=== PATIENT | female | born 1985 | race Caucasian/White ===

== ENCOUNTER 2022-06-05 22:08 | Observation (INO) | payer BC, SELFPAY ==
--- NOTE | ~2022-06-05 | US_ITS ---
EXAMINATION: US abdomen limited DATE: 06/06/2022 13:42 INDICATION: Right upper quadrant abdominal pain. Abnormal liver function tests. TECHNIQUE: Multiple grayscale and Doppler ultrasound images of the abdomen were obtained. COMPARISON: MRCP 06/06/2022 FINDINGS: The visualized portions of the head and body of the pancreas are normal. The liver is benjamin l without focal lesion. There are gallstones in the gallbladder, which is normal in size. Gallbladder wall thickening is noted. There is a positive sonographic Decker sign. The common duct is normal and measures 3 mm. IMPRESSION: 1. Cholelithiasis, gallbladder wall thickening, and positive sonographic Decker sign, consistent with acute cholecystitis.. Reviewed, dictated and finalized at location A.
--- NOTE | ~2022-06-05 | CT_ITS ---
EXAMINATION: CT abdomen pelvis w con DATE: 06/05/2022 23:52 INDICATION: Right abdominal pain. Nausea, vomiting, and diarrhea. TECHNIQUE: Computed tomography (CT) of the abdomen and pelvis was performed with 100 mL Omnipaque 350 intravenous contrast. Automated exposure control and iterative reconstruction technique were employe d. The dose-length product was 1045.94 mGy-cm. COMPARISON: None. FINDINGS: The visualized portions of the lung bases demonstrate minimal atelectasis. No pleural effus ion. The heart size is normal. No pericardial effusion. The liver is normal. The gallbladder is diste nded and contains stones or sludge. The spleen, pancreas, adrenal glands, and kidneys are normal. The re are no dilated loops of bowel. The appendix is normal. There are no pathologically enlarged lymph nodes. There is no free intraperitoneal fluid. There is mild thoracolumbar spondylosis. There is mild chronic anterior wedging of multiple thoracic vertebral bodies. IMPRESSION: 1. Gallbladder distention suspicious for acute cholecystitis. Reviewed, dictated and finalized at location A.
--- NOTE | ~2022-06-05 | MR_ITS ---
EXAMINATION: MR MRCP wo/w con/w 3D wo ind DATE: 06/06/2022 12:08 INDICATION: Right upper quadrant abdominal pain. Elevated liver enzymes. TECHNIQUE: Magnetic resonance imaging (MRI) of the abdomen was performed without and with 15 mL Multi jaimee intravenous contrast. Sequences included coronal T2-weighted SS-FSE, coronal T2-weighted FS SS- FSE, coronal T2-weighted FS FIESTA, axial T2-weighted FS FIESTA, axial T2-weighted FIESTA, sagittal T 2-weighted SS-FSE, axial T1-weighted dual-echo FSPGR, axial T2-weighted SS-FSE, axial T1-weighted LAV A, axial T2-weighted STIR FSE. Thick-slab T2-weighted FRFSE-XL images were obtained for magnetic reso nance cholangiopancreatography (MRCP). Rotating maximum intensity projection 3-D reconstructions of t he volumetric data were created by the technologist. Postcontrast sequences included a time course of axial T1-weighted LAVA. COMPARISON: CT dated 05/28/2022 FINDINGS: ABDOMEN MRI: Heart size is normal. No pericardial or pleural effusion. 5 mm T2 hyperintense nonenhancing cyst in t he left hepatic lobe. Liver is otherwise unremarkable with no intrahepatic biliary ductal dilation. T he spleen, pancreas, bilateral adrenal glands and kidneys are normal. Again seen are numerous gallsto mario alberto in the dependent aspect of the gallbladder which measures up to 3.8 cm in maximal diameter which remains within normal limits. No definitive gallbladder wall thickening or pericholecystic inflammato ry stranding to suggest acute cholecystitis. Visualized portion of the bowels are normal. No patholog ically enlarged abdominal lymphadenopathy. Mild midline ventral diastases. ABDOMEN MRCP: The common bile duct measures up to 4-5 mm in maximal diameter which is normal and which tapers lazaro hly at the distal duct with no evident strictures or choledocholithiasis. The intrahepatic biliary tr ee and main pancreatic duct are also normal. IMPRESSION: 1. Cholelithiasis without evident choledocholithiasis or biliary ductal dilation. Reviewed, dictated and finalized at location A. IMPRESSION: 1. Cholelithiasis without evident choledocholithiasis or biliary ductal dilatio n.
[2022-06-05 22:10] VITALS: BP 126/77; PULSE 67; RESP 16; TEMP 36.8; O2SAT 99
[2022-06-05 22:42] LABS: Basophils Percent Auto 0.9 % (0.2-1.2); Eosinophils Absolute Auto 0.1 K/mm3 (0-0.3); Eosinophils Percent Auto 1.2 % (0-4.4); Hematocrit 40.1 % (37.0-47.0); Hemoglobin 13.6 g/dL (12.0-15.0); Immature Granulocyte Absolute 0.01 K/mm3 (0.00-0.031); Immature Granulocyte Percent A 0.2 % (0-0.5); Mean Corpuscular HGB Conc 33.9 g/dl (32-36); Mean Corpuscular Hemoglobin 30.7 pg (26-34); Mean Corpuscular Volume 90.5 fl (80-100); Mean Platelet Volume 10.8 fl (7.4-10.4); Monocytes Absolute Auto 0.4 K/mm3 (0.1-0.6); Monocytes Percent Auto 8.3 % (2.6-8.5); Neutrophils Absolute Auto 2.4 K/mm3 (1.3-6.7); Neutrophils Percent Auto 56.4 % (45.5-73.1); Platelet Count Result 263 k/mm3 (150-375); Red Blood Count 4.43 M/mm3 (4.2-5.4); Red Cell Distribution Width 12.2 % (11.5-14.5); White Blood Count 4.2 K/mm3 (4.5-10.0)
[2022-06-05 22:52] LABS: Albumin Level 4.7 g/dL (3.5-5.1); Alkaline Phosphatase 148 U/L (38-126); Anion Gap 11 mmol/L (8-16); Aspartate Amino Transferase 582 U/L (14-36); Bilirubin,Total 4.4 mg/dL (0.2-1.3); Blood Urea Nitrogen 7 mg/dL (7-17); Calcium 9.4 mg/dL (8.4-10.2); Carbon Dioxide 28 mmol/L (22-30); Chloride 97 mmol/L (98-107); Estimated CRCL calculation 99 ml/min; Estimated Glomerular Filt Rate > 60; Glucose 103 mg/dL (65-110); Lipase 75 U/L (23-300); Potassium 3.9 mmol/L (3.4-5.0); Sodium 136 mmol/L (137-145)
[2022-06-05 22:56] LABS: Appearance Urine Cloudy (Clear); Bilirubin Urine 3+ (Negative); Blood Urine 2+ (Negative); Color Urine Amber (Yellow); Glucose Urine UA Negative (Negative); Ketones Urine Negative (Negative); Leukocyte Esterase Ur 1+ LEU/UL (Negative); Nitrate Urine Negative (Negative); Protein Urine Negative (Negative); Urobilinogen Urine 0.2 mg/dL (<2.0); pH Urine 7.5 (5.0-9.0)
--- NOTE | 2022-06-05 22:58 | ED.ABDPAIN ---
HPI - Abdominal Pain General Chief Complaint: Abdominal Pain Stated Complaint: abdominal pain Time Seen by Provider: 06/05/22 22:51 Source: patient Mode of arrival: ambulatory Limitations: no limitations History of Present Illness HPI narrative: This is a 37-year-old female that presents to the emergency department for right-sided abdominal pain. Reports the pain radiates into her back. Present over the last couple of days. Associated with nausea and vomiting. Denies fevers, dysuria, hematuria. Related Data Home Medications Medication Instructions Recorded Confirmed cholecalciferol (vitamin D3) 50 50 mcg PO DAILY 11/13/20 11/13/20 mcg (2,000 unit) capsule cyanocobalamin (vitamin B-12) 1,000 mcg PO DAILY 11/13/20 11/13/20 1,000 mcg capsule ferrous sulfate 325 mg (65 mg 325 mg PO DAILY 11/13/20 11/13/20 iron) tablet (Feosol) lactobacillus combination no.9 4 PO 11/13/20 11/13/20 billion cell capsule (Adult 50 Plus Probiotic) levothyroxine 75 mcg tablet 75 mcg PO DAILY 11/13/20 11/13/20 metformin 500 mg tablet 500 mg PO DAILY 11/13/20 11/13/20 Allergies Allergy/AdvReac Type Severity Reaction Status Date / Time No Known Allergies Allergy Unverified 06/05/22 22:08 Review of Systems Review of Systems: CONSTITUTIONAL: Denies fever GASTROINTESTINAL: Reports abdominal pain, nausea, vomiting, and diarrhea. GENITOURINARY: Denies dysuria or hematuria. All systems reviewed & are unremarkable except as noted in HPI and below PMFSH Past Medical History Medical History (Updated 11/13/20 @ 10:38 by Simran Lizarraga NP) Anemia Depression Ita's disease History of PCOS Surgical History Surgical History (Updated 11/13/20 @ 07:29 by Anel Tarango CMA) H/O section X2 Family History Family History (Updated 11/13/20 @ 07:30 by Anel Tarango CMA) Grandparent Cerebrovascular accident Mother Hypothyroidism Social History Social History Smoking status: Never smoker Second hand tobacco smoke exposure: No Alcohol intake: current Exam Narrative: GENERAL: Well-appearing, well-nourished, and in no acute distress. HEAD: Normocephalic, atraumatic. EYES: EOMI. CHEST: Clear to auscultation. No respiratory distress. No wheezes rales or rhonchi HEART: Regular rate and rhythm. No murmur heard. Normal peripheral pulses. ABDOMEN: Soft, nondistended, normal active bowel sounds. Tender to palpation in the right upper quadrant, without guarding EXTREMITIES: Normal range of motion. No edema. SKIN: Warm, dry, no rash. NEURO: No focal deficits. Alert and oriented x3. PSYCH: Normal mood and affect Course Consultations Consultation #1: Spoke with Dr. Gomez about patient and work-up who will consult Date: 06/06/22 Consultation #2: Spoke with Dr. Coats about patient work-up who will consult Date: 06/06/22 Consultation #3: Spoke with Dr. Silva about patient and work-up who accepts admission Date: 06/06/22 Vital Signs Vital signs: Vital Signs Temperature 98.3 F 06/05/22 22:10 Pulse Rate 67 06/05/22 22:10 Respiratory Rate 16 06/05/22 22:10 Blood Pressure 126/77 06/05/22 22:10 Pulse Oximetry 99 06/05/22 22:10 Oxygen Delivery Room Air 06/05/22 22:10 Temperature 98.3 F 06/05/22 22:10 Pulse Rate 67 06/05/22 22:10 Respiratory Rate 16 06/05/22 22:10 Blood Pressure 126/77 06/05/22 22:10 Pulse Oximetry 99 06/05/22 22:10 Oxygen Delivery Room Air 06/05/22 22:10 MDM - Abdominal Pain MDM Narrative Medical decision making narrative: Patient presents emergency department for right upper quadrant pain ongoing over the last couple of days. Associated with nausea and vomiting. She is afebrile and nontoxic-appearing. CBC is without leukocytosis. Metabolic panel with transaminitis and hyperbilirubinemia. UA with possible evidence of infection. Patient started on IV antibiotics. Bedside test is negative. CT s
[2022-06-05 22:59] LABS: Alanine Aminotransferase 846 U/L (6-35)
[2022-06-05 23:00] LABS: Bacteria Urine Trace /hpf; Mucus Urine Rare /lpf; RBC Urine 0-2 /hpf (0-2); Squamous Epithelial Cell Urine Few /hpf (Few); WBC Urine 21-30 /hpf
[2022-06-05 23:01] LABS: Add Urine Microscopic? YES
[2022-06-05 23:17] LABS: Acetaminophen < 10 ug/mL (10-30)
[2022-06-05] MEDS: ONDANSETRON INJ 4 MG/2 ML VIAL IV PUSH (23:27)
[2022-06-05] MEDS: SODIUM CHLORIDE 0.9% IV 1,000 ML 999 ML IV CONT (23:27)
[2022-06-05] MEDS: MORPHINE SULFATE (*CRX) 4 MG/ML INJ IV PUSH (23:27)
[2022-06-05 23:31] VITALS: BP 111/73; O2SAT 100
[2022-06-05 23:48] LABS: Hepatitis B Surface Antigen Negative (Negative)
[2022-06-05 23:54] LABS: HAV RESULT Negative (Negative); Hepatitis B Core IgM Result Negative (Negative)
[2022-06-06] VITALS (7 sets, daily range): BP systolic 107–134; BP diastolic 52–82; PULSE 64–66; RESP 16–20; TEMP 36.3–37.3; O2SAT 98–100; BMI 34.2
[2022-06-06 00:06] LABS: Hepatitis C Virus Antibody Negative (Negative)
--- NOTE | 2022-06-06 01:19 | PM.IMHP ---
H&P: HPI History of Present Illness Date/Time: 06/06/22 01:19 Chief Complaint: nausea and vomiting Narrative: this is a 37-year-old female with past medical history significant for Ita's thyroiditis, patient presents to the emergency room due to nausea and vomiting since Monday, and right upper quadrant pain, patient denies any fevers, rigors, chills, cough, sputum production, diarrhea, weight loss, change in stool character. preliminary workup was significant for comprehensive metabolic profile with total bili of 4.4 AST 580 ALT [address] of abdomen and pelvis showed numerous gallstones. Patient is been admitted for further evaluation management and treatment. Review of Systems Review of Systems: Right upper quadrant pain, nausea, vomiting. Constitutional: Constitutional: Denies chills, Denies fever(s) and Denies malaise Eyes: Eyes: Denies change in vision ENT: Denies dysphagia and Denies odynophagia Cardiovascular: Cardiovascular: Denies chest pain, Denies syncope, Denies irregular heart rhythm, Denies lightheadedness and Denies palpitations Respiratory: Respiratory: Denies chest congestion, Denies cough, Denies excessive phlegm production, Denies pain on inspiration, Denies dyspnea and Denies dyspnea on exertion Gastrointestinal: Gastrointestinal: Reports abdominal pain, Denies dyspepsia, Denies heartburn, Reports nausea and Reports vomiting Genitourinary: Genitourinary: Denies dysuria Musculoskeletal: Musculoskeletal: Denies back pain, Denies joint swelling, Denies muscle weakness and Reports neck pain Integumentary/Breasts: Skin/Breast: Denies rash Neurologic: Denies vertigo, Denies dizziness, Denies focal weakness and Denies Sensory deficit (Neuro) Psychiatric: Psychiatric: Reports no additional psychiatric complaints and Reports as per HPI Endocrine: Endocrine: Denies cold intolerance, Denies flushing, Denies heat intolerance, Denies polyphagia, Denies polydipsia and Denies palpitations Hematologic/Lymphatic: Hematologic/Lymphatic: Reports no additional hematologic/lymphatic complaints and Reports as per HPI Allergic/Immunologic: Allergic/Immunologic: Reports no additional allergic/immunologic complaints and Reports as per HPI PMFSH Past Medical History Medical History (Updated 06/06/22 @ 04:18 by Jay Silva MD) Anemia Depression Ita's disease History of PCOS Surgical History Surgical History (Updated 11/13/20 @ 07:29 by Anel Tarango CMA) H/O section X2 Family History Family History Grandparent Cerebrovascular accident Mother Hypothyroidism Social History Social History Smoking status: Never smoker Second hand tobacco smoke exposure: No Alcohol intake: current Drinks per week: 3 Substance use: never Spiritual care concerns: No Meds Home Medications and Allergies Home Medications Medication Instructions Recorded Confirmed Type cholecalciferol (vitamin D3) 50 50 mcg PO DAILY 11/13/20 06/06/22 History mcg (2,000 unit) capsule cyanocobalamin (vitamin B-12) 1,000 mcg PO DAILY 11/13/20 06/06/22 History 1,000 mcg capsule ferrous sulfate 325 mg (65 mg 325 mg PO DAILY 11/13/20 06/06/22 History iron) tablet (Feosol) lactobacillus combination no.9 4 See Rx Instructions .Route .COMPLEX 11/13/20 06/06/22 History billion cell capsule (Adult 50 Plus Probiotic) desogestrel-e.estradiol 0.15 1 tablet PO HS 06/06/22 06/06/22 History mg-0.02 mg(21)/e.estrad 0.01 mg(5) tablet (Volnea (28)) levothyroxine 88 mcg tablet 88 mcg PO DAILY 06/06/22 06/06/22 History (Synthroid) spironolactone 50 mg tablet 50 mg PO HS 06/06/22 06/06/22 History Allergies Allergy/AdvReac Type Severity Reaction Status Date / Time No Known Allergies Allergy Unverified 06/05/22 22:08 Vital Signs Vital Signs - 24 hr 06/05/22 22:10 Temperature 98.3
--- NOTE | 2022-06-06 02:28 | ADMGEN ---
This patient, Little Soto, was admitted to Medical Room 243-. Patient/family oriented to hospital policies and general routines including ID bracelet, bed and alarms, visiting hours, pain management, procedures, bathroom and other care routines, personal items, smoking policy, room service/diet, and visiting hours. Information on how to activate the Rapid Response Team has been discussed. Patient/Family are encouraged to report perceived risks to care and to ask questions if they do not understand what they are told or what they should do.
[2022-06-06 06:25] LABS: Basophils Percent Auto 0.8 % (0.2-1.2); Eosinophils Percent Auto 0.4 % (0-4.4); Hematocrit 36.9 % (37.0-47.0); Hemoglobin 12.3 g/dL (12.0-15.0); Immature Granulocyte Absolute 0.01 K/mm3 (0.00-0.031); Immature Granulocyte Percent A 0.2 % (0-0.5); Lymphocytes Absolute Auto 0.96 K/mm3 (0.9-3.2); Lymphocytes Percent Auto 19.2 % (18.3-44.2); Mean Corpuscular HGB Conc 33.3 g/dl (32-36); Mean Corpuscular Hemoglobin 30.9 pg (26-34); Mean Corpuscular Volume 92.7 fl (80-100); Mean Platelet Volume 10.8 fl (7.4-10.4); Monocytes Absolute Auto 0.4 K/mm3 (0.1-0.6); Neutrophils Absolute Auto 3.6 K/mm3 (1.3-6.7); Neutrophils Percent Auto 72.4 % (45.5-73.1); Platelet Count Result 225 k/mm3 (150-375); Red Blood Count 3.98 M/mm3 (4.2-5.4); Red Cell Distribution Width 12.4 % (11.5-14.5)
[2022-06-06 06:37] LABS: Alanine Aminotransferase 685 U/L (6-35); Albumin Level 3.9 g/dL (3.5-5.1); Alkaline Phosphatase 127 U/L (38-126); Anion Gap 2 mmol/L (8-16); Aspartate Amino Transferase 355 U/L (14-36); Bilirubin Direct 1.4 mg/dL (0-0.3); Bilirubin,Total 3.3 mg/dL (0.2-1.3); Blood Urea Nitrogen 5 mg/dL (7-17); Calcium 8.2 mg/dL (8.4-10.2); Carbon Dioxide 27 mmol/L (22-30); Chloride 104 mmol/L (98-107); Estimated CRCL calculation 95 ml/min; Estimated Glomerular Filt Rate > 60; Glucose 108 mg/dL (65-110); Lipase 32 U/L (23-300); Magnesium 1.9 mg/dL (1.6-2.3); Potassium 4.3 mmol/L (3.4-5.0); Sodium 133 mmol/L (137-145)
[2022-06-06] MEDS: SODIUM CHLORIDE 0.9% IV 1,000 ML 100 ML IV CONT ×2 (07:56→22:58)
--- NOTE | 2022-06-06 10:35 | PM.CNGS ---
Assessment and Plan Assessment and plan (1) Cholelithiasis: Code(s): K80.20 - Calculus of gallbladder without cholecystitis without obstruction Status: Acute Assessment and Plan: CT reviewed and discussed with the patient in detail. There is evidence of small gallstones or sludge and gallbladder distension. She continues to have right upper quadrant abdominal pain and is tender on exam. LFTs are elevated. Concerning for common bile duct stone. Will order a right upper quadrant abdominal ultrasound this morning. GI has been consulted. We will await ultrasound and possibly MRCP for further plan. Discussed with the patient that she may eventually need a cholecystectomy if she does have choledocholithiasis or evidence of acute cholecystitis on ultrasound with persistent abdominal pain. Thank you for allowing us to see the patient in consultation and we will continue to follow along with you. (2) Right upper quadrant pain: Code(s): R10.11 - Right upper quadrant pain Status: Acute (3) Abnormal LFTs: Code(s): R79.89 - Other specified abnormal findings of blood chemistry Status: Acute Assessment and Plan: LFTs elevated on admission with total bilirubin 4.4. LFTs down slightly today with Tbili 3.3, direct bilirubin 1.4. Hepatitis panel negative. GI consulted. May need MRCP to further evaluate for CBD stone. Trend labs. 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 Gomez. History of Present Illness Consult details Consult date: 06/06/22 Reason for consult: other (Cholelithiasis, elevated LFTs, biliary colic) Requesting physician: Simran East PA-C Narrative: This is a 37-year-old obese woman with a history of PCOS and Ita's disease, who presented to the ER last night for right-sided abdominal pain x3 days. She reports having a similar episode of abdominal pain, vomiting, and diarrhea last August. Her symptoms were more mild and spontaneously resolved at home. Therefore, she did not seek any medical attention at that time. This episode started Monday night, 3 nights ago. She ate a Qdoba rice, beans, and shrimp bowl for dinner. She went to bed and woke up through the night with right-sided abdominal pain that radiated to her back. She describes the pain as sharp. She had associated nausea and diarrhea, but no vomiting that night. The following day her pain continued and she felt unwell while at work. She ended up leaving work early and vomited once home. She had associated chills. She only ate applesauce and liquids throughout the day. This did not seem to aggravate her symptoms. Her pain continued into Monday, but was more mild. She decided to eat dinner and had vegetarian lasagna. Shortly after eating, her abdominal pain became more severe and she decided to come into the ER for evaluation. She felt nauseated on the way to the ER, but no further episodes of vomiting. With further questioning, she also endorses dark urine starting Monday morning. No light-colored stools and no jaundice noted at home. CT scan of the abdomen and pelvis was initially read by the virtual radiologist, which showed the impression gallbladder distention with probable small gallstones. Her labs showed a white blood cell count 4,200, total bilirubin 4.4, AST 582, ALT 846, alk-phos 142. Lipase normal. Urinalysis with + bilirubin, + blood, + leukocytes, and 21-30 wbc's. She was admitted to the hospitalist service and given 1 dose of IV ceftriaxone. Our service has been consulted for the biliary colic with cholelithiasis and elevated LFTs. GI has also been consulted. The patient is now seen on medical floor. The IV morphine given to her in the ER helped her pain and she required a dose of IV Tylenol this morning when her pain started to return. She still reports worse pain is in
--- NOTE | 2022-06-06 11:45 | PM.IMPN ---
Progress Note: A&P Assessment and Plan (1) Cholelithiasis: Code(s): K80.20 - Calculus of gallbladder without cholecystitis without obstruction Status: Acute Assessment and Plan: CT showed distended gallbladder with probable stones, no thickening RUQ ultrasound ordered MRCP Cholelithiasis without evident choledocholithiasis or biliary ductal dilation. NPO Surgical intervention scheduled for today IV fluids for hydration surgery consult thank you for your help GI consult thank you for your help Pain medications Morphine 4mg IV Zofran 4mg IV supportive care (2) Right upper quadrant pain: Code(s): R10.11 - Right upper quadrant pain Status: Acute Assessment and Plan: likely secondary to 1. 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 She stated that she got some IV tylenol which has seemed to help. She currently denies any chest pain, shortness of breath, nausea, vomiting, diarrhea, constipation. She is currently waiting to go for the RUQ ultrasound. Talked with the patient about the proper steps in regaurds to her symptoms. 06/06/22? 01:19 ?this is a 37-year-old female with past medical history significant for Ita's thyroiditis, patient presents to the emergency room due to nausea and vomiting since Monday, and right upper quadrant pain, patient denies any fevers, rigors, chills, cough, sputum production, diarrhea, weight loss, change? in stool ? character. preliminary workup was significant for comprehensive metabolic profile with total bili of 4.4 AST 580? ALT? [address] of abdomen and pelvis showed numerous gallstones.? Patient is been admitted for further evaluation management and treatment. Review of Systems Review of Systems: All systems reviewed & are unremarkable except as noted in HPI and below Exam Const: General: comfortable, no acute distress, well developed, alert and awake Nutritional Appearance: overweight Orientation/consciousness: patient oriented x3 HENMT: Head: normal to inspection, normocephalic and atraumatic Ears: hearing grossly normal bilaterally Face and sinus: normal facial exam Eyes: General: appearance normal, both eyes and all related structures Pupils: Equal, round and reactive pupils present EOM: EOMs intact bilaterally Neck: Neck: full ROM, no lymphadenopathy and no JVD Thyroid: thyroid normal Lymphatic: no lymphadenopathy noted Resp: Effort & Inspection: normal respiratory effort and able to speak in complete sentences Auscultation: clear to auscultation bilaterally Cardio: Jugular venous distension: no JVD Rate: regular rate Rhythm: regular rhythm Heart sounds: S1 normal heart sound present and S2 normal heart sound present GI: GI Palp: Yes Soft to palpation, Yes Tenderness to palpation present (GI) and Yes Guarding due to palpation present (GI) Auscultation: Hypoactive bowel sounds present Rectal Exam: deferred : General: Yes deferred Skin: General skin exam: normal color Lesions: lesion noted Rashes: no rashes Wounds: no wounds Neuro: General: patient oriented x3, CN's II-XI intact bilaterally and Unable to assess gait Cranial nerves: Yes CN's II-XII intact bilaterally and Yes Equal, round and reactive pupils present Cognition (Neuro): normal cognitio
--- NOTE | 2022-06-06 14:13 | WPDGICN ---
Assessment and Plan Assessment and plan (1) Right upper quadrant pain: Code(s): R10.11 - Right upper quadrant pain Status: Acute Assessment and Plan: mrcp reviewed and normal bile duct size and no choledocholithiasis patient will need lap cholecystectomy given clinical presentation, surgery is on board no need of ERCP (2) Abnormal LFTs: Code(s): R79.89 - Other specified abnormal findings of blood chemistry Status: Acute Assessment and Plan: GB related monitor and trend (3) Cholelithiasis: Code(s): K80.20 - Calculus of gallbladder without cholecystitis without obstruction Status: Acute Assessment and Plan: cause of symptoms (4) Nausea and vomiting in adult: Code(s): R11.2 - Nausea with vomiting, unspecified Status: Acute Assessment and Plan: still nauseous but no more vomiting GI Consult Note Consult date/time: 06/06/22 14:13 Reason for consult: cholecystitis, elevated liver enzymes HPI: Little Soto is a 37 year old female history of PCOS and Ita's disease here with new onset of severe pain in ruq with radiation to her back, this was associated to nausea and vomiting, started after had Qdoba rice, beans, and shrimp bowl for dinner.?She had similar episode on August but went away and did not have to see a doctor, this time pain persisted. CT scan of the abdomen and pelvis reviewed, showed gallbladder distention with probable small gallstones.? Her labs showed a white blood cell count 4,200, total bilirubin 4.4, AST 582, ALT 846, alk-phos 142.? Lipase normal.?MRCP showed Cholelithiasis without evident choledocholithiasis or biliary ductal dilation. Review of Systems Review of Systems: All systems reviewed & are unremarkable except as noted in HPI and below Constitutional: Constitutional: Reports as per HPI, Reports no additional constitutional complaints, Reports chills, Denies fatigue, Denies fever(s), Denies headache(s) and Denies poor appetite Eyes: Eyes: Reports no additional eye complaints and Denies change in vision ENT: Reports system reviewed and no additional complaints, except as documented and Reports Normal hearing present Cardiovascular: Cardiovascular: Reports no additional cardiovascular complaints, Denies chest pain and Denies leg edema Respiratory: Respiratory: Reports no additional respiratory complaints, Denies cough and Denies dyspnea Gastrointestinal: Gastrointestinal: Reports as per HPI, Reports no additional gastrointestinal complaints, Reports abdominal pain, Denies melena, Denies hematochezia, Denies change in bowel habits, Reports diarrhea (Monday only), Reports nausea and Reports vomiting Genitourinary: Genitourinary: Reports no additional female genitourinary complaints, Reports abnormal menses (r/t control), Denies hematuria, Denies dysuria and Reports other (dark orange, brown urine x 2 days) Musculoskeletal: Musculoskeletal: Reports no additional musculoskeletal complaints Integumentary/Breasts: Skin/Breast: Reports system reviewed and no additional complaints, except as docu and Denies jaundice Neurologic: Reports system reviewed and no additional complaints, except as documented, Denies dizziness, Denies focal weakness, Denies numbness and Denies tingling PMFSH Past Medical History Medical History (Updated 06/06/22 @ 14:19 by Gagandeep Cabral MD) Anemia Depression Ita's disease History of PCOS Nausea and vomiting in adult Surgical History Surgical History H/O section X2 Family History Family History Grandparent Cerebrovascular accident Mother Hypothyroidism Social History Social History Smoking status: Never smoker Second hand tobacco smoke exposure: No Alcohol intake: cu
[2022-06-07] VITALS (12 sets, daily range): BP systolic 110–145; BP diastolic 61–84; PULSE 45–84; RESP 12–20; TEMP 35.9–37.1; O2SAT 98–100
[2022-06-07 05:02] LABS: Basophils Percent Auto 0.9 % (0.2-1.2); Eosinophils Absolute Auto 0.1 K/mm3 (0-0.3); Eosinophils Percent Auto 1.5 % (0-4.4); Immature Granulocyte Absolute 0.01 K/mm3 (0.00-0.031); Immature Granulocyte Percent A 0.3 % (0-0.5); Lymphocytes Absolute Auto 1.44 K/mm3 (0.9-3.2); Lymphocytes Percent Auto 43.6 % (18.3-44.2); Mean Corpuscular HGB Conc 33.3 g/dl (32-36); Mean Corpuscular Hemoglobin 30.8 pg (26-34); Mean Corpuscular Volume 92.3 fl (80-100); Mean Platelet Volume 11.6 fl (7.4-10.4); Monocytes Absolute Auto 0.3 K/mm3 (0.1-0.6); Monocytes Percent Auto 9.4 % (2.6-8.5); Neutrophils Absolute Auto 1.5 K/mm3 (1.3-6.7); Neutrophils Percent Auto 44.3 % (45.5-73.1); Platelet Count Result 210 k/mm3 (150-375); Red Cell Distribution Width 12.2 % (11.5-14.5); White Blood Count 3.3 K/mm3 (4.5-10.0)
[2022-06-07 05:30] LABS: Alanine Aminotransferase 489 U/L (6-35); Albumin Level 3.6 g/dL (3.5-5.1); Alkaline Phosphatase 112 U/L (38-126); Amylase 30 U/L (30-110); Anion Gap 1 mmol/L (8-16); Aspartate Amino Transferase 177 U/L (14-36); Blood Urea Nitrogen 7 mg/dL (7-17); Calcium 8.2 mg/dL (8.4-10.2); Carbon Dioxide 27 mmol/L (22-30); Chloride 103 mmol/L (98-107); Estimated CRCL calculation 95 ml/min; Estimated Glomerular Filt Rate > 60; Glucose 83 mg/dL (65-110); Lipase 26 U/L (23-300); Potassium 3.7 mmol/L (3.4-5.0); Sodium 131 mmol/L (137-145)
--- NOTE | 2022-06-07 08:50 | WPDHPUPDATE1 ---
History and Physical Update Update Date/Time: 06/07/22 08:50 History and Physical has been reviewed, including an updated exam of the patient. There are changes in the patient's condition. Patient's total bilirubin and direct bilirubin have come down to normal over the last 48 hours. Her pain has somewhat resolved although she still has some deep ache radiating to her right mid back. patient continues on ceftriaxone for possible UTI and for the possibility that this is acute rather than chronic cholecystitis with cholelithiasis. Risks, benefits, and alternatives of a laparoscopic cholecystectomy, possible intraoperative cholangiogram, possible open cholecystectomy have been discussed and questions answered. Patient agrees to proceed with procedure.
[2022-06-07] MEDS: CHLORHEXIDINE GLUCONATE 4% SOL 120 ML BTL 1 APPLIC TOPICAL (08:54)
--- NOTE | 2022-06-07 10:00 | PM.IMPN ---
Progress Note: A&P Assessment and Plan (1) Cholelithiasis: Code(s): K80.20 - Calculus of gallbladder without cholecystitis without obstruction Status: Acute Assessment and Plan: CT showed distended gallbladder with probable stones, no thickening RUQ ultrasound Cholelithiasis, gallbladder wall thickening, and positive sonographic Decker sign, consistent with acute cholecystitis.. MRCP Cholelithiasis without evident choledocholithiasis or biliary ductal dilation. NPO Surgical intervention scheduled for today IV fluids for hydration surgery consult thank you for your help GI consult thank you for your help Pain medications Morphine 4mg IV Zofran 4mg IV supportive care (2) Right upper quadrant pain: Code(s): R10.11 - Right upper quadrant pain Status: Acute Assessment and Plan: likely secondary to 1. 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 She denies any chest pain, shortness of breath, nausea, vomiting, diarrhea, constipation, weakness or fatigue. She did state that her pain is been okay. She is looking forward to her surgery today. She currently is comfortable. 06/06/22 1145 Patient is doing ok. She stated that she got some IV tylenol which has seemed to help. She currently denies any chest pain, shortness of breath, nausea, vomiting, diarrhea, constipation. She is currently waiting to go for the RUQ ultrasound. Talked with the patient about the proper steps in regaurds to her symptoms. 06/06/22? 01:19 ?this is a 37-year-old female with past medical history significant for Ita's thyroiditis, patient presents to the emergency room due to nausea and vomiting since Monday, and right upper quadrant pain, patient denies any fevers, rigors, chills, cough, sputum production, diarrhea, weight loss, change? in stool ? character. preliminary workup was significant for comprehensive metabolic profile with total bili of 4.4 AST 580? ALT? [address] of abdomen and pelvis showed numerous gallstones.? Patient is been admitted for further evaluation management and treatment. Review of Systems Review of Systems: All systems reviewed & are unremarkable except as noted in HPI and below Exam Const: General: comfortable, no acute distress, well developed, alert and awake Nutritional Appearance: overweight Orientation/consciousness: patient oriented x3 HENMT: Head: normal to inspection, normocephalic and atraumatic Ears: hearing grossly normal bilaterally Face and sinus: normal facial exam Eyes: General: appearance normal, both eyes and all related structures Pupils: Equal, round and reactive pupils present EOM: EOMs intact bilaterally Neck: Neck: full ROM, no lymphadenopathy and no JVD Thyroid: thyroid normal Lymphatic: no lymphadenopathy noted Resp: Effort & Inspection: normal respiratory effort and able to speak in complete sentences Auscultation: clear to auscultation bilaterally Cardio: Jugular venous distension: no JVD Rate: regular rate Rhythm: regular rhythm Heart sounds: S1 normal heart sound present and S2 normal heart sound present GI: Auscultation: Hypoactive bowel sounds present Rectal Exam: deferred
[2022-06-07] MEDS: SODIUM CHLORIDE 0.9% IV 1,000 ML 100 ML IV CONT (10:09)
--- NOTE | 2022-06-07 10:38 | WPDGIPROGNO ---
Progress Note: A&P Assessment and Plan (1) Cholecystitis: Code(s): K81.9 - Cholecystitis, unspecified Status: Acute Assessment and Plan: lap robinson today doing better and normalization of bilirubin will follow [place], call if questions (2) Abnormal LFTs: Code(s): R79.89 - Other specified abnormal findings of blood chemistry Status: Acute Assessment and Plan: no need of ercp MRCP reviewed and most likely passed stone (3) Cholelithiasis: Code(s): K80.20 - Calculus of gallbladder without cholecystitis without obstruction Status: Acute Assessment and Plan: lap robinson (4) Right upper quadrant pain: Code(s): R10.11 - Right upper quadrant pain Status: Acute (5) Nausea and vomiting in adult: Code(s): R11.2 - Nausea with vomiting, unspecified Status: Acute Assessment and Plan: resolved Subjective Date/time seen: 06/07/22 10:38 Interval history: she is doing much better, today lap robinson Review of Systems Review of Systems: All systems reviewed & are unremarkable except as noted in HPI and below Exam Const: General: comfortable and no acute distress HENMT: General nose exam: Normal nares present Eyes: General: appearance normal, both eyes and all related structures Neck: Neck: no JVD Resp: Auscultation: clear to auscultation bilaterally Cardio: Rate: regular rate Rhythm: regular rhythm GI: Inspection: non-distended GI Palp: Yes Soft to palpation Skin: General skin exam: normal color Neuro: General: gait normal Speech: normal speech Extrem: General: normal to inspection Psych: Mental Status: mental status grossly normal Objective Data Vital Signs Vital Signs: Vital Signs - 24 hr 06/06/22 14:00 06/06/22 22:13 06/06/22 21:50 Temperature 97.9 F 97.3 F L Pulse Rate 65 64 Respiratory Rate 16 20 Blood Pressure 118/65 134/69 Pulse Oximetry 99 99 Oxygen Delivery Room Air 06/07/22 06:56 Temperature 97.7 F Pulse Rate 64 Respiratory Rate 20 Blood Pressure 110/65 Pulse Oximetry 98 Oxygen Delivery Intake/Output Intake/Output: Intake & Output 06/04/22 06/05/22 06/06/22 06/07/22 23:59 23:59 23:59 23:59 Intake Total 2830 1000 Output Total 1550 600 Balance 1280 400 Meds/Results Medications: Active Medications Generic Name Dose Route Start Last Admin Trade Name Freq PRN Reason Stop Dose Admin Sodium Chloride 1,000 mls @ 100 mls/hr 06/06/22 07:30 06/07/22 10:09 Normal Saline Iv IV CONT 100 mls/hr .Q10H CHANDLER Administration Ceftriaxone Sodium/Dextrose 1 gm in 50 mls @ 100 mls/hr 06/06/22 20:00 06/06/22 21:30 Rocephin 1 Gm/D5w 50 Ml IVPB Infused Q24H CHANDLER Infusion Morphine Sulfate 4 mg 06/06/22 01:33 Morphine Sulfate (*Crx) 4 Mg/Ml Inj IV PUSH Q4H PRN Pain Rated 7-10 Ondansetron HCl 4 mg 06/06/22 01:33 Ondansetron Inj 4 Mg/2 Ml Vial IV PUSH Q4H PRN Nausea Radiology Results: ITS Impressions Abdomen/Pelvis CT 06/06/22 08:51 IMPRESSION: 1. Gallbladder distention suspicious for acute cholecystitis. MRCP 06/06/22 12:19 IMPRESSION: 1. Cholelithiasis without evident choledocholithiasis or biliary ductal dilation. Abdomen Ultrasound 06/06/22 13:51 IMPRESSION: 1. Cholelithiasis, gallbladder wall thickening, and positive sonographic Decker sign, consistent with acute cholecystitis.. Labs Labs: Laboratory Results - last 24 hr 06/07/22 06/07/22 06/07/22 04:47 04:47 04:47 WBC 3.3 L RBC 3.90 L Hgb 12.0 Hct 36.0 L MCV 92.3 MCH 30.8 MCHC 33.3 RDW 12.2 Plt Count 210 MPV 11.6 H Immature Gran % (Auto) 0.3 Neut % (Auto) 44.3 L Lymph % (Auto) 43.6 [place] % (Auto) 9.4 H Eos % (Auto) 1.5 Baso % (Auto) 0.9 Lymph # (Auto) 1.44 [place] # (Auto) 0.3 Eos # (Auto) 0.1 Baso # (Auto) 0.0 Abs Immat Gran (auto) 0.01 Absolute Neuts (au
--- NOTE | 2022-06-07 12:06 | PC.NURSE ---
Pt left unit for surgical procedure 06/07/22/ 12:07pm
--- NOTE | 2022-06-07 12:18 | WPDANESEPP ---
Anes - Eval Pre Procedure Procedure: Operation Date: 06/07/22 14:00 Proposed Procedures p Laparoscopic Cholecystectomy,Possible Intraoperative Cholangiograms,Possible Open - Aramis Gomez MD Date/Time: 06/07/22 12:18 Pre Op Diagnosis: acute cholecystitis Patient Data Age: 37 Gender: F Height: 1.65 m Weight: 93.3 kg Last Vital Signs Temp 97.7 F 06/07/22 06:56 Pulse 64 06/07/22 06:56 Resp 20 06/07/22 06:56 BP 110/65 06/07/22 06:56 Pulse Ox 98 06/07/22 06:56 O2 Del Method Room Air 06/07/22 09:00 Allergies Allergy/AdvReac Type Severity Reaction Status Date / Time No Known Allergies Allergy Unverified 06/05/22 22:08 Home Medications Medication Instructions Recorded Confirmed Type cholecalciferol (vitamin D3) 50 50 mcg PO DAILY 11/13/20 06/06/22 History mcg (2,000 unit) capsule cyanocobalamin (vitamin B-12) 1,000 mcg PO DAILY 11/13/20 06/06/22 History 1,000 mcg capsule ferrous sulfate 325 mg (65 mg 325 mg PO DAILY 11/13/20 06/06/22 History iron) tablet (Feosol) lactobacillus combination no.9 4 See Rx Instructions .Route .COMPLEX 11/13/20 06/06/22 History billion cell capsule (Adult 50 Plus Probiotic) desogestrel-e.estradiol 0.15 1 tablet PO HS 06/06/22 06/06/22 History mg-0.02 mg(21)/e.estrad 0.01 mg(5) tablet (Volnea (28)) levothyroxine 88 mcg tablet 88 mcg PO DAILY 06/06/22 06/06/22 History (Synthroid) spironolactone 50 mg tablet 50 mg PO HS 06/06/22 06/06/22 History Laboratory Tests 06/07/22 06/07/22 06/07/22 04:47 04:47 04:47 WBC 3.3 K/mm3 L K/mm3 (4.5-10.0) RBC 3.90 M/mm3 L M/mm3 (4.2-5.4) Hgb 12.0 g/dL g/dL (12.0-15.0) Hct 36.0 % L % (37.0-47.0) MCV 92.3 fl fl (80-100) MCH 30.8 pg pg (26-34) MCHC 33.3 g/dl g/dl (32-36) RDW 12.2 % % (11.5-14.5) Plt Count 210 k/mm3 k/mm3 (150-375) MPV 11.6 fl H fl (7.4-10.4) Immature Gran % (Auto) 0.3 % % (0-0.5) Neut % (Auto) 44.3 % L % (45.5-73.1) Lymph % (Auto) 43.6 % % (18.3-44.2) [place] % (Auto) 9.4 % H % (2.6-8.5) Eos % (Auto) 1.5 % % (0-4.4) Baso % (Auto) 0.9 % % (0.2-1.2) Lymph # (Auto) 1.44 K/mm3 K/mm3 (0.9-3.2) [place] # (Auto) 0.3 K/mm3 K/mm3 (0.1-0.6) Eos # (Auto) 0.1 K/mm3 K/mm3 (0-0.3) Baso # (Auto) 0.0 K/mm3 K/mm3 (0.0-0.1) Abs Immat Gran (auto) 0.01 K/mm3 K/mm3 (0.00-0.031) Absolute Neuts (auto) 1.5 K/mm3 K/mm3 (1.3-6.7) Absolute Nucleated RBC 0.0 K/mm3 K/mm3 (0.0-0.012) Nucleated RBC % 0.0 % % (0.0-0.2) Sodium 131 mmol/L L mmol/L (137-145) Potassium 3.7 mmol/L mmol/L (3.4-5.0) Chloride 103 mmol/L mmol/L (98-107) Carbon Dioxide 27 mmol/L mmol/L (22-30) Anion Gap 1 mmol/L L mmol/L (8-16) BUN 7 mg/dL mg/dL (7-17) Creatinine 0.80 mg/dL mg/dL (0.7-1.0) Estim Creat Clear Calc 95 ml/min ml/min Estimated GFR > 60 (59 - ) Glucose 83 mg/dL mg/dL (65-110) Calcium 8.2 mg/dL L mg/dL (8.4-10.2) Total Bilirubin 1.0 mg/dL mg/dL (0.2-1.3) Direct Bilirubin 0.0 mg/dL mg/dL (0-0.3) AST 177 U/L H U/L (14-36) ALT 489 U/L H U/L (6-35) Alkaline Phosphatase 112 U/L U/L (38-126) Total Protein 7.0 g/dL g/dL (6.3-8.2) Albumin 3.6 g/dL g/dL (3.5-5.1) Amylase 30 U/L U/L (30-110) Lipase 26 U/L U/L (23-300) Blood Type A Positive Antibody Screen Negative Patient hx anesthesia problems: none Family hx anesthesia problems: none Results Review: All pre-operative results and documents have been reviewed as part of the pre-operative evaluation. [facility] Past Medical History Medical
--- NOTE | 2022-06-07 12:29 | P.PNAN_ITS ---
Anes - Initial Pre Proc Eval Procedure: Operation Date: 06/07/22 14:00 Proposed Procedures p Laparoscopic Cholecystectomy,Possible Intraoperative Cholangiograms,Possible Open - Aramis Gomez MD Date/Time: 06/07/22 12:29 Surgeon: Jay Silva MD Pre Op Diagnosis: acute cholecystitis Patient Data Age: 37 Gender: F Height: 1.65 m Weight: 93.3 kg Last Vital Signs Temp 97.7 F 06/07/22 06:56 Pulse 64 06/07/22 06:56 Resp 20 06/07/22 06:56 BP 110/65 06/07/22 06:56 Pulse Ox 98 06/07/22 06:56 O2 Del Method Room Air 06/07/22 09:00 Allergies Allergy/AdvReac Type Severity Reaction Status Date / Time No Known Allergies Allergy Unverified 06/05/22 22:08 Home Medications Medication Instructions Recorded Confirmed Type cholecalciferol (vitamin D3) 50 50 mcg PO DAILY 11/13/20 06/06/22 History mcg (2,000 unit) capsule cyanocobalamin (vitamin B-12) 1,000 mcg PO DAILY 11/13/20 06/06/22 History 1,000 mcg capsule ferrous sulfate 325 mg (65 mg 325 mg PO DAILY 11/13/20 06/06/22 History iron) tablet (Feosol) lactobacillus combination no.9 4 See Rx Instructions .Route .COMPLEX 11/13/20 06/06/22 History billion cell capsule (Adult 50 Plus Probiotic) desogestrel-e.estradiol 0.15 1 tablet PO HS 06/06/22 06/06/22 History mg-0.02 mg(21)/e.estrad 0.01 mg(5) tablet (Volnea (28)) levothyroxine 88 mcg tablet 88 mcg PO DAILY 06/06/22 06/06/22 History (Synthroid) spironolactone 50 mg tablet 50 mg PO HS 06/06/22 06/06/22 History Laboratory Tests 06/07/22 06/07/22 06/07/22 04:47 04:47 04:47 WBC 3.3 K/mm3 L K/mm3 (4.5-10.0) RBC 3.90 M/mm3 L M/mm3 (4.2-5.4) Hgb 12.0 g/dL g/dL (12.0-15.0) Hct 36.0 % L % (37.0-47.0) MCV 92.3 fl fl (80-100) MCH 30.8 pg pg (26-34) MCHC 33.3 g/dl g/dl (32-36) RDW 12.2 % % (11.5-14.5) Plt Count 210 k/mm3 k/mm3 (150-375) MPV 11.6 fl H fl (7.4-10.4) Immature Gran % (Auto) 0.3 % % (0-0.5) Neut % (Auto) 44.3 % L % (45.5-73.1) Lymph % (Auto) 43.6 % % (18.3-44.2) [place] % (Auto) 9.4 % H % (2.6-8.5) Eos % (Auto) 1.5 % % (0-4.4) Baso % (Auto) 0.9 % % (0.2-1.2) Lymph # (Auto) 1.44 K/mm3 K/mm3 (0.9-3.2) [place] # (Auto) 0.3 K/mm3 K/mm3 (0.1-0.6) Eos # (Auto) 0.1 K/mm3 K/mm3 (0-0.3) Baso # (Auto) 0.0 K/mm3 K/mm3 (0.0-0.1) Abs Immat Gran (auto) 0.01 K/mm3 K/mm3 (0.00-0.031) Absolute Neuts (auto) 1.5 K/mm3 K/mm3 (1.3-6.7) Absolute Nucleated RBC 0.0 K/mm3 K/mm3 (0.0-0.012) Nucleated RBC % 0.0 % % (0.0-0.2) Sodium 131 mmol/L L mmol/L (137-145) Potassium 3.7 mmol/L mmol/L
[2022-06-07] MEDS: LACTATED RINGERS 1,000 ML 30 ML IV CONT (12:30)
--- NOTE | 2022-06-07 14:28 | W.PM.PROC2 ---
Procedure Note - Detailed Date of Procedure 06/07/22 Pre-op Diagnosis Cholelithiasis with acute cholecystitis Post-op Diagnosis Other (Chronic cholecystitis with cholelithiasis) Procedure Performed Laproscopic Cholecystectomy Surgeon Aramis Gomez MD Copy Reader Carlito [email or web address] first beater Anesthesia General Indications Patient presented with elevated bilirubin and upper abdominal pain. Her pain seemed to resolve with antibiotics and pain medication. However, MRCP showed no common bile duct stones and her bilirubin came down nicely to normal. Therefore since she has other dietary restrictions and was concerned about being restricted also from fat she decided to proceed with a cholecystectomy while she was still in the hospital. I think this is very reasonable as she has stones in did have at least 2 episodes of symptoms now. Findings Gallbladder appeared to be grade possibly chronically inflamed with some adhesions of the omentum to the underside but no severe thickening, redness, or signs of necrosis. Dissection was reasonably easy and we were able to identify a window of safety and the cystic duct cystic artery as the only 2 tubular structures extending toward the gallbladder in the hepatic triangle. Description of Procedure Patient was seen preoperatively in the holding area and risks, benefits and alternatives confirmed. Patient was taken to the operating room and general anesthesia was induced. A time out was then preformed with the surgery team confirming patient and site of surgery. The abdomen was prepped and draped in the usual sterile fashion. Incision was made just below the umbilicus with an 11 blade knife. I placed 2 stay sutures of O- Vicryl on either side of the mid-line fascia beneath the umbilicus and was then able to slide in the Wall cannula through the fascial defect into the peritoneum. First under low flow and then under high flow the abdomen was insufflated with carbon dioxide never exceeding a pressure of 14. Three 5 mm trocars were then introduced under direct vision. The following trocars were introduced under direct vision: a 5 mm in the epigastrium and two 5 mm trocars along the right costal margin laterally in the subcostal area. There were significant omental adhesions to the underside of the gallbladder. These were taken down with blunt and sharp dissection using some Bovie cautery for hemostasis. We were able to dissect this completely away from the neck of the gallbladder. I then carefully used the L-shaped cautery and the [place] dissector to dissect out the triangle of [place]. I then was able to dissect out both the cystic duct and cystic artery and identify a window of safety. The gall bladder was grasped and the cystic duct and artery were dissected free and clipped with an 5 mm endo-clip subsurface augmentee elint operator. The cystic duct and artery were clipped with use of 2 clips on the patient's side 1 on the gallbladder side utilizing a 5 mm endoclip-subsurface augmentee elint operator. The cystic duct was then transected. The cystic artery was also transected at this point. The gall bladder was removed using electrocautery and then removed from the abdomen using a large 10 mm grasper via the umbilical incision. The trocars were removed visualizing hemostasis and the remaining gas evacuated. The large trocar site at the umbilicus was closed with use of the 2 stay sutures of 0 Vicryl mentioned above and also a figure of 8 O-Vicryl suture. The 2 stay sutures mentioned above on either side of the fascia were also tied together to help approximate this midline fascia. Further local anesthetic was placed into each incision for postop pain control. The skin incisions were closed with subcuticular suture of 4-0 Monocryl. Surgical glue then was applied to all the incisions. Patient tolerated the procedure well was taken to the recovery room in good condition. Implants none Estimated Blood Loss 10 Packing No Pathology Yes (Gallbladder) Complication
[2022-06-07] MEDS: fentaNYL CITRATE INJ (*CRX) 100 MCG/2 ML VIAL 25 MCG IV PUSH ×3 (14:56→15:18)
[2022-06-07] MEDS: ONDANSETRON INJ 4 MG/2 ML VIAL IV PUSH (14:57)
[2022-06-07] MEDS: MORPHINE SULFATE (*CRX) 4 MG/ML INJ IV PUSH (15:59)
--- NOTE | 2022-06-07 19:58 | PC.NURSE ---
On 06/07/22, the License pending RN Roxane Ball, provided care and completed [employer] [employer] documentation on this patient. I have reviewed her documentation and agree with the findings.
[2022-06-07] MEDS: HYDROcodone/acetaminophen (*CRX) 5-325 MG TABLET 1 TAB PO (20:28)
[2022-06-08] MEDS: HYDROcodone/acetaminophen (*CRX) 5-325 MG TABLET 1 TAB PO (02:57)
[2022-06-08 03:50] VITALS: BP 119/71; PULSE 54; RESP 17; TEMP 36.9; O2SAT 99
[2022-06-08 05:38] LABS: Basophils Percent Auto 0.4 % (0.2-1.2); Hematocrit 35.4 % (37.0-47.0); Immature Granulocyte Absolute 0.03 K/mm3 (0.00-0.031); Immature Granulocyte Percent A 0.4 % (0-0.5); Lymphocytes Absolute Auto 1.07 K/mm3 (0.9-3.2); Mean Corpuscular HGB Conc 33.9 g/dl (32-36); Mean Corpuscular Hemoglobin 31.1 pg (26-34); Mean Corpuscular Volume 91.7 fl (80-100); Mean Platelet Volume 11.2 fl (7.4-10.4); Monocytes Absolute Auto 0.6 K/mm3 (0.1-0.6); Monocytes Percent Auto 7.8 % (2.6-8.5); Neutrophils Absolute Auto 6.5 K/mm3 (1.3-6.7); Neutrophils Percent Auto 78.4 % (45.5-73.1); Platelet Count Result 226 k/mm3 (150-375); Red Blood Count 3.86 M/mm3 (4.2-5.4); Red Cell Distribution Width 11.9 % (11.5-14.5); White Blood Count 8.2 K/mm3 (4.5-10.0)
[2022-06-08 06:46] LABS: Alanine Aminotransferase 510 U/L (6-35); Albumin Level 3.7 g/dL (3.5-5.1); Alkaline Phosphatase 93 U/L (38-126); Anion Gap 3 mmol/L (8-16); Aspartate Amino Transferase 200 U/L (14-36); Bilirubin,Total 0.9 mg/dL (0.2-1.3); Blood Urea Nitrogen 6 mg/dL (7-17); Calcium 7.8 mg/dL (8.4-10.2); Carbon Dioxide 26 mmol/L (22-30); Chloride 100 mmol/L (98-107); Estimated CRCL calculation 123 ml/min; Estimated Glomerular Filt Rate > 60; Glucose 105 mg/dL (65-110); Magnesium 1.7 mg/dL (1.6-2.3); Sodium 129 mmol/L (137-145)
--- NOTE | 2022-06-08 08:07 | PM.IMPN ---
Progress Note: A&P Assessment and Plan (1) Cholelithiasis: Code(s): K80.20 - Calculus of gallbladder without cholecystitis without obstruction Status: Acute Assessment and Plan: CT showed distended gallbladder with probable stones, no thickening RUQ ultrasound Cholelithiasis, gallbladder wall thickening, and positive sonographic Decker sign, consistent with acute cholecystitis.. MRCP Cholelithiasis without evident choledocholithiasis or biliary ductal dilation. Clear liquid diet Surgical intervention of cholecystectomy on 06/07/22 IV fluids for hydration surgery consult thank you for your help GI consult thank you for your help Pain medications Morphine 4mg IV Zofran 4mg IV supportive care (2) Right upper quadrant pain: Code(s): R10.11 - Right upper quadrant pain Status: Acute Assessment and Plan: likely secondary to 1. 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 She denies any chest pain, shortness of breath, nausea, vomiting, diarrhea, constipation, weakness or fatigue. She did state that her pain is been okay. She is looking forward to her surgery today. She currently is comfortable. 06/06/22 1145 Patient is doing ok. She stated that she got some IV tylenol which has seemed to help. She currently denies any chest pain, shortness of breath, nausea, vomiting, diarrhea, constipation. She is currently waiting to go for the RUQ ultrasound. Talked with the patient about the proper steps in regaurds to her symptoms. 06/06/22? 01:19 ?this is a 37-year-old female with past medical history significant for Ita's thyroiditis, patient presents to the emergency room due to nausea and vomiting since Monday, and right upper quadrant pain, patient denies any fevers, rigors, chills, cough, sputum production, diarrhea, weight loss, change? in stool ? character. preliminary workup was significant for comprehensive metabolic profile with total bili of 4.4 AST 580? ALT? [address] of abdomen and pelvis showed numerous gallstones.? Patient is been admitted for further evaluation management and treatment. Review of Systems Review of Systems: All systems reviewed & are unremarkable except as noted in HPI and below Exam Const: General: comfortable, no acute distress, well developed, alert and awake Nutritional Appearance: overweight Orientation/consciousness: patient oriented x3 HENMT: Head: normal to inspection, normocephalic and atraumatic Ears: hearing grossly normal bilaterally Face and sinus: normal facial exam Eyes: General: appearance normal, both eyes and all related structures Pupils: Equal, round and reactive pupils present EOM: EOMs intact bilaterally Neck: Neck: full ROM, no lymphadenopathy and no JVD Thyroid: thyroid normal Lymphatic: no lymphadenopathy noted Resp: Effort & Inspection: normal respiratory effort and able to speak in complete sentences Auscultation: clear to auscultation bilaterally Cardio: Jugular venous distension: no JVD Rate: regular rate Rhythm: regular rhythm Heart sounds: S1 normal heart sound present and S2 normal heart sound present GI: Auscultation: Hypoactive bowel sounds present Rectal
[2022-06-08 09:10] VITALS: PULSE 54; RESP 17; O2SAT 99
[2022-06-08] MEDS: CHOLECALCIFEROL 1,000 UNITS TABLET 2000 UNITS PO (09:18)
[2022-06-08] MEDS: ENOXAPARIN 40 MG/0.4 ML SYRINGE SUB-Q (09:18)
[2022-06-08] MEDS: CYANOCOBALAMIN 1,000 MCG TABLET 1000 MCG PO (09:19)
--- NOTE | 2022-06-08 09:44 | P.DS_ITS ---
DS: Admitting Diagnosis Discharge Date 06/08/22 0945 Admitting Diagnosis Cholecystitis DS: Discharge Diagnosis Discharge Diagnosis (1) Cholelithiasis: Code(s): K80.20 - Calculus of gallbladder without cholecystitis without obstruction Status: Deleted Assessment and Plan: * CT showed distended gallbladder with probable stones, no thickening * RUQ ultrasound Cholelithiasis, gallbladder wall thickening, and positive sonographic Decker sign, consistent with acute cholecystitis.. * MRCP Cholelithiasis without evident choledocholithiasis or biliary ductal dilation. * Clear liquid diet * Surgical intervention of cholecystectomy on 06/07/22 * IV fluids for hydration * surgery consult thank you for your help * GI consult thank you for your help * Pain medications Morphine 4mg IV * Zofran 4mg IV * supportive care (2) Right upper quadrant pain: Code(s): R10.11 - Right upper quadrant pain Status: Acute Assessment and Plan: * likely secondary to 1. 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 Upon arrival her AST was 580 ALT 800 alk-phos 140. CT of the abdomen and pelvis shows gallstones and distension. Right upper quadrant ultrasound shows cholelithiasis, gallbladder wall thickening and positive Decker sign. MRCP could showed cholelithiasis without evidence of choledocholithiasis or bili duct dilatation general surgery had been consulted and patient opted for surgical intervention. GI was consulted. liver enzymes have been on trend in her currently stable at this time. Patient is doing well with food and pain and is stable for discharge at this time. Labs and vital signs remained stable as well. Status at Discharge Functional status at discharge: independent ambulation Overall status at discharge: patient is progressing back to baseline Time Spent with Patient Time attestation: Total time spent providing and/or coordinating discharge services:37 min Time spent: Greater than 30 minutes Specific discharge activities: Diagnostic testing, chart review, developing a treatment plan, education, care coordination documentation, physical exam, result review Exam Const: General: comfortable, no acute distress, well developed, alert and awake Nutritional Appearance: overweight Orientation/consciousness: patient oriented x3 HENMT: Head: normal to inspection, no
--- NOTE | 2022-06-08 09:44 | PM.DS ---
DS: Admitting Diagnosis Discharge Date 06/08/22 0945 Admitting Diagnosis Cholecystitis DS: Discharge Diagnosis Discharge Diagnosis (1) Cholelithiasis: Code(s): K80.20 - Calculus of gallbladder without cholecystitis without obstruction Status: Deleted Assessment and Plan: CT showed distended gallbladder with probable stones, no thickening RUQ ultrasound Cholelithiasis, gallbladder wall thickening, and positive sonographic Decker sign, consistent with acute cholecystitis.. MRCP Cholelithiasis without evident choledocholithiasis or biliary ductal dilation. Clear liquid diet Surgical intervention of cholecystectomy on 06/07/22 IV fluids for hydration surgery consult thank you for your help GI consult thank you for your help Pain medications Morphine 4mg IV Zofran 4mg IV supportive care (2) Right upper quadrant pain: Code(s): R10.11 - Right upper quadrant pain Status: Acute Assessment and Plan: likely secondary to 1. 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 Upon arrival her AST was 580 ALT 800 alk-phos 140. CT of the abdomen and pelvis shows gallstones and distension. Right upper quadrant ultrasound shows cholelithiasis, gallbladder wall thickening and positive Decker sign. MRCP could showed cholelithiasis without evidence of choledocholithiasis or bili duct dilatation general surgery had been consulted and patient opted for surgical intervention. GI was consulted. liver enzymes have been on trend in her currently stable at this time. Patient is doing well with food and pain and is stable for discharge at this time. Labs and vital signs remained stable as well. Status at Discharge Functional status at discharge: independent ambulation Overall status at discharge: patient is progressing back to baseline Time Spent with Patient Time attestation: Total time spent providing and/or coordinating discharge services:37 min Time spent: Greater than 30 minutes Specific discharge activities: Diagnostic testing, chart review, developing a treatment plan, education, care coordination documentation, physical exam, result review Exam Const: General: comfortable, no acute distress, well developed, alert and awake Nutritional Appearance: overweight Orientation/consciousness: patient oriented x3 HENMT: Head: normal to inspection, normocephalic and atraumatic Ears: hearing grossly normal bilaterally Face and sinus: normal facial exam Eyes: General: appearance normal, both eyes and all related structures Pupils: Equal, round and reactive pupils present EOM: EOMs intact bilaterally Neck: Neck: full ROM, no lymphadenopathy and no JVD Thyroid: thyroid normal Lymphatic: no lymphadenopathy noted Resp: Effort & Inspection: normal respiratory effort and able to speak in complete sentences Auscultation: clear to auscultation bilat
--- NOTE | 2022-06-08 09:56 | PM.PNGS ---
Progress Note: A&P Assessment and Plan (1) Cholecystitis, acute with cholelithiasis: Code(s): K80.00 - Calculus of gallbladder with acute cholecystitis without obstruction Status: Resolved Assessment and Plan: POD#1 and doing well. Pain is controlled and she is tolerating her diet. Okay to discharge from a surgical standpoint. Follow-up with Dr. Gomez in 2 weeks. 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 (2) Abnormal LFTs: Code(s): R79.89 - Other specified abnormal findings of blood chemistry Status: Acute Assessment and Plan: Should continue to trend down. Related to #1 above. 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 Gomez. Subjective Subjective Date/Time Seen: 06/08/22 08:56 Post Op day: 1 (laparoscopic cholecystectomy) Patient reports: no new complaints, voiding w/o difficulty, no flatus, no bowel movement and afebrile Interval history: Patient seen and examined. She is sitting in the chair today and doing well. No nausea or new complaints. [place] is controlling her pain. Tolerating activity. Review of Systems Review of Systems: All systems reviewed & are unremarkable except as noted in HPI and below Exam Const: General: comfortable, no acute distress and awake Orientation/consciousness: patient oriented x3 GI: Inspection: non-distended and incision (Abdominal incisions dry and glue intact.) GI Palp: Yes Soft to palpation, Yes Tenderness to palpation present (GI) (incisional) and No Guarding due to palpation present (GI) Auscultation: normal bowel sounds Neuro: General: moves all extremities and no focal motor deficits Extrem: General: no calf tenderness and no edema Psych: Mental Status: mental status grossly normal Insight: Good insight present (Psych) Objective Data Vital Signs Vital Signs: Vital Signs - 24 hr 06/07/22 12:35 06/07/22 14:29 06/07/22 14:45 Temperature 97.5 F L 97.1 F L Pulse Rate 68 50 L 45 L Respiratory Rate 16 19 20 Blood Pressure 115/61 117/74 129/84 Pulse Oximetry 100 100 100 Oxygen Delivery Room Air Simple Face Mask Simple Face Mask Oxygen Flow Rate 10 10 06/07/22 15:03 06/07/22 15:30 06/07/22 15:45 Temperature 96.7 F L Pulse Rate 48 L 52 L 65 Respiratory Rate 14 12 16 Blood Pressure 136/77 145/66 H 113/72 Pulse Oximetry 100 98 100 Oxygen Delivery Simple Face Mask Room Air Oxygen Flow Rate 10 06/07/22 16:00 06/07/22 16:30 06/07/22 17:30 Temperature 96.9 F L 97.7 F 97.8 F Pulse Rate 62 63 84 Respiratory Rate 14 18 16 Blood Pressure 113/70 114/61 119/75 Pulse Oximetry 100 99 100 Oxygen Delivery Oxygen Flow Rate 06/07/22 20:00 06/07/22 20:00 06/07/22 23:43 Temperature 97.7 F 98.7 F Pulse Rate 71 73 Respiratory Rate 18 17 Blood Pressure 128/62 117/67 Pulse Oximetry 98 98 Oxygen Delivery Room Air Oxygen Flow Rate 06/08/22 03:50 Temperature 98.5 F Pulse Rate 54 L Respiratory Rate 17 Blood Pressure 119/71 Pulse Oximetry 99 Oxygen Delivery Oxygen Flow Rate Intake/Output Intake/Output: Intake & Output 06/05/22 06/06/22 06/07/22 06/08/22 23:59 23:59 23:59 23:59 Intake Total 2830 1710 610 Output Total 1550 1300 1200 Balance 1280 410 -590 Meds/Results Medications: Active Medications Generic Name Dose Route Start Last Admin Trade Name Freq PRN Reason Stop Dose Admin Acetaminophen 500 mg 06/07/22 15:33 Acetaminophen 500 Mg Tablet PO Q6H PRN Mild Pain (1-3) or Fever Hydrocodone Bitart/Acetaminophen 1 tab 06/07/22 15:33 06/08/22 02:57 Hydrocodone/Acetaminophen (*Crx) 5-325 Mg Tablet PO 1 tab Q4H PRN Administration Pain Rated 4-6 Hydrocodone Bitart/Acetaminophen 1 tab 06/07/22 15:33 Hydrocodon
[2022-06-08 10:36] VITALS: BP 134/72; PULSE 65; RESP 12; TEMP 37; O2SAT 100
[2022-06-08] MEDS: LEVOTHYROXINE SODIUM 88 MCG TABLET PO (10:42)
== END 2022-06-08 12:37 | disposition home or self-care (01) ==
LOC: ANHED 22:52 → ANH2MED 06-06 01:58
PROVIDERS: Nurse Practitioner; Physician Assistant; Surgery; Admitting Provider Internal Medicine; Emergency Provider Emergency Medicine; PCP Internal Medicine; Visit Provider Internal Medicine
PROC: 0FT44ZZ Resection of Gallbladder, Percutaneous Endoscopic Approach (ICD-10-PCS; CPT 47562; principal; 2022-06-07 14:00)
DX: K80.10 Calculus of gallbladder with chronic cholecystitis without obstruction (principal); R79.89 Other specified abnormal findings of blood chemistry; R11.2 Nausea with vomiting, unspecified; E06.3 Autoimmune thyroiditis
CPT/HCPCS: 47562; 36415; 74177; 74183; 76376; 76705; 80048; 80053; 80074; 80076; 80307; 81001; 81025; 82150; 83690; 83735; 85025; 86850; 86900; 86901; 87086; 87088; 88304; 96361; 96365; 96366; 96372; 96375; 96376; 99285; A9270; A9577; G0378; J0131; J0696; J1100; J1650; J2250; J2270; J2405; J2704; J3010; J7030; J7120; Q9966; Q9967

== ENCOUNTER 2024-03-21 17:07 | Emergency (ER) | payer BC, SELFPAY ==
--- NOTE | ~2024-03-21 | XR_ITS ---
XR wrist RT min 3V Ordering provider: Johnnie Mcnair MD History: . 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 Comparison: None. FINDINGS: BONES: Comminuted fracture involving the distal metaphysis of the right radius with no malalignment. Extension of the fracture to the joint space is noted. Fracture of the ulnar styloid is also noted. JOINT SPACES: Well maintained. SOFT TISSUES: Unremarkable. IMPRESSION: Comminuted fracture involving the distal metaphysis of the right radius with no malalignm ent. Extension of the fracture to the joint space is noted. Fracture of the ulnar styloid. Reviewed, dictated and finalized at location A. IMPRESSION: Comminuted fracture involving the distal metaphysis of the right ra dius with no malalignment. Extension of the fracture to the joint space is note d. Fracture of the ulnar styloid.
[2024-03-21 17:20] VITALS: BP 137/82; PULSE 56; RESP 20; TEMP 36.6; O2SAT 100
--- NOTE | 2024-03-21 19:46 | ED.UPPEXIN ---
HPI - Extremity Injury (Upper) General Chief Complaint: Extremity Injury, Upper Stated Complaint: left shoulder injury Time Seen by Provider: 03/21/24 19:08 Source: patient Mode of arrival: ambulatory Limitations: no limitations History of Present Illness HPI narrative: This is a 38 year old female that presents to the ER for right wrist injury sustained just prior to arrival. Reports she was roller skating and fell and caught herself with her right wrist. Reports swelling and pain to the area. Reports decreased ROM due to pain. Denies numbness. Related Data Home Medications Medication Instructions Recorded Confirmed cholecalciferol (vitamin D3) 50 50 mcg PO DAILY 11/13/20 10/20/23 mcg (2,000 unit) capsule cyanocobalamin (vitamin B-12) 1,000 mcg PO DAILY 11/13/20 10/20/23 1,000 mcg capsule ferrous sulfate 325 mg (65 mg 325 mg PO DAILY 11/13/20 10/20/23 iron) tablet (Feosol) lactobacillus combination no.9 4 See Rx Instructions .Route .COMPLEX 11/13/20 10/20/23 billion cell capsule (Adult 50 Plus Probiotic) desogestrel-e.estradiol 0.15 1 tablet PO HS 06/06/22 10/20/23 mg-0.02 mg(21)/e.estrad 0.01 mg(5) tablet (Volnea (28)) spironolactone 50 mg tablet 50 mg PO HS 06/06/22 10/20/23 multivitamin 1 tablet PO DAILY 04/27/23 10/20/23 magnesium sulfate 100 mg capsule 100 mg PO DAILY 10/20/23 10/20/23 Allergies Allergy/AdvReac Type Severity Reaction Status Date / Time No Known Allergies Allergy Verified 03/21/24 17:08 Review of Systems Review of Systems: CONSTITUTIONAL: Denies fever MUSCULOSKELETAL: Reports joint pain, and myalgia. NEUROLOGIC: Denies numbness All systems reviewed & are unremarkable except as noted in HPI and below PMFSH Past Medical History Medical History (Updated 03/21/24 @ 20:46 by Smiran East PA-C) Acute cholecystitis Anemia Depression Ita's disease History of PCOS Nausea and vomiting in adult Right upper quadrant pain Surgical History Surgical History H/O section X2 Hx laparoscopic cholecystectomy 06/07/22 Family History Family History Grandparent Cerebrovascular accident Mother Hypothyroidism Grandparent Gallbladder cancer Social History Social History (Updated 10/20/23 @ 08:38 by Melody Srinivasan CMA) Smoking status: Never smoker Second hand tobacco smoke exposure: No Alcohol intake: current Drinks per week: 3 Substance use: never Do You Feel Safe in your Home?: Yes Lack of Transportation: No Lack of Food: Never True Current Housing: I Have Housing Concerned About Future Housing: No Difficulty Paying Gas/Electric Bills: No Difficulty Paying for Meds: No Currently Unemployed: No Education: High School Diploma/GED Difficulty w/ Childcare or Family Care: No Living arrangements: with family Occupation/Education: occupation Additional occupation/education comments: 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 HEAD: Normocephalic, atraumatic. EYES: EOMI. EXTREMITIES: Decreased active ROM in the right wrist with swelling noted. Normal radial pulse. Normal sensation SKIN: Warm, dry, no rash. NEURO: No focal deficits. Alert and oriented x3. PSYCH: Normal mood and affect Course Course Emergency Course: Patient updated on workup and agrees with plan of care Vital Signs Vital signs: Vital Signs Temperature 98 F 03/21/24 17:20 Pulse Rate 56 L 03/21/24 17:20 Respiratory Rate 20 03/21/24 17:20 Blood Pressure 137/82 03/21/24 17:20 Pulse Oximetry 100 03/21/24 17:20 Oxygen Delivery Room Air 03/21/24 17:20 Temperature 98 F 03/21/24 17:20 Pulse Rate 56
[2024-03-21] MEDS: HYDROcodone/acetaminophen (*CRX) 5-325 MG TABLET 1 TAB PO (20:02)
[2024-03-21 20:54] VITALS: BP 138/82; PULSE 63; RESP 15; O2SAT 100
== END 2024-03-21 20:55 | disposition home or self-care (01) ==
PROVIDERS: Emergency Provider Physician Assistant; PCP Internal Medicine
DX: S52.501A Unspecified fracture of the lower end of right radius, initial encounter for closed fracture (principal); W18.30XA Fall on same level, unspecified, initial encounter; E06.3 Autoimmune thyroiditis
CPT/HCPCS: 29125; 73110; 99284; A4565; A9270

== ENCOUNTER 2024-03-29 00:19 | Day surgery (SDC) | payer BC, SELFPAY ==
[2024-03-26 09:34] VITALS: BMI 36.6
--- NOTE | 2024-03-26 09:35 | PC.NURSE ---
Report to the Outpatient Waiting Room, entrance under the green pavilion located off [facility], at time _0930_ on date _[id number]_. Planned Procedure Time: _1130_. Time changes happen often and if your time is changed the preop area will call you the afternoon before. - You and your visitor will be asked to self-screen and do not enter if you have any COVID symptoms. - A mask is optional within the hospital at this time. Patients may have clear liquids (water, carbonated beverages, clear teas, apple juice) until 3 hours prior to surgery with a maximum of 20 ounces. - No food from midnight until time of surgery Take the following medications with a SIP of water the morning of surgery: __Synthroid DO NOT STOP ANY OF YOUR OTHER PRESCRIPTION MEDICATIONS PRIOR TO SURGERY ?EXCEPT THE FOLLOWING Medications to discontinue per physician __All vitamins and supplements. Date to take last dose____Stop now. Please no make-up, nail occitan, hairspray, perfume, deodorant, or body powder the day of surgery. No jewelry (including any body piercings) or valuables the day of surgery, leave them at home. Please take a shower or bath the night before, or the morning of, surgery with an antibacterial soap. Wear comfortable, loose fitting clothing. - Jewelry must be removed prior to entering the operating room. Rings and piercings that are not removed may be cut off. - The hospital will not accept responsibility for valuables. - Please leave all valuables, including medications, at home the day of surgery. If you are going home after surgery, a licensed public transit bus driver must drive you home. - NO public transportation without another adult if you receive anesthesia. - We recommend that an adult stay with you for 24 hours following discharge. - We also recommend that you do not drive, make important decision, drink alcoholic beverages, or take any drugs that were not prescribed by your health care provider for at least 24 hours after your discharge time. Follow any additional instructions given to you from your surgeon. If you or anyone in your household have experienced Covid symptoms in the past week, please notify your surgeon or the nurse liaison at the phone number below for possible testing. Telephone instructions given to _Little__and asked if any additional questions and then verbalized understanding. Patient advised to call surgeon office or pre surgery nurse liaison [phone] if any additional questions.
--- NOTE | 2024-03-28 14:20 | WPDANESEPPF ---
Anes - Initial Pre Proc Eval Procedure: Operation Date: 03/29/24 11:30 Proposed Procedures p Open Reduction Internal Fixation Right Distal Radius Fracture - Pepe Smith MD Date/Time: 03/28/24 14:20 Surgeon: Pepe Smith MD Pre Op Diagnosis: right distal radius fx Patient Data Age: 38 Gender: F Height: 1.65 m Weight: 100 kg Allergies Allergy/AdvReac Type Severity Reaction Status Date / Time No Known Allergies Allergy Verified 03/26/24 09:28 Home Medications Medication Instructions Recorded Confirmed Type cholecalciferol (vitamin D3) 50 50 mcg PO DAILY 11/13/20 03/26/24 History mcg (2,000 unit) capsule cyanocobalamin (vitamin B-12) 1,000 mcg PO DAILY 11/13/20 03/26/24 History 1,000 mcg capsule ferrous sulfate 325 mg (65 mg 325 mg PO DAILY 11/13/20 03/26/24 History iron) tablet (Feosol) lactobacillus combination no.9 4 See Rx Instructions .Route .COMPLEX 11/13/20 03/26/24 History billion cell capsule (Adult 50 Plus Probiotic) multivitamin 1 tablet PO DAILY 04/27/23 03/26/24 History magnesium sulfate 100 mg capsule 100 mg PO DAILY 10/20/23 03/26/24 History Synthroid 88 mcg tablet 88 mcg PO DAILY #90 tabs 03/11/24 03/26/24 Rx (levothyroxine) hydrocodone 5 mg-acetaminophen 325 1 tablet PO Q6H PRN pain #20 tabs 03/21/24 03/26/24 Rx mg tablet apple cider vinegar 500 mg tablet mg PO DAILY 03/26/24 History spironolactone 50 mg tablet 50 mg PO HS #90 tabs 03/26/24 Rx Patient hx anesthesia problems: none Family hx anesthesia problems: none Results Review: All pre-operative results and documents have been reviewed as part of the pre-operative evaluation. [facility] Past Medical History Medical History Acute cholecystitis Anemia Depression Ita's disease History of PCOS Nausea and vomiting in adult Right upper quadrant pain Surgical History Surgical History H/O section X2 Hx laparoscopic cholecystectomy 8/30/22 Family History Family History Grandparent Cerebrovascular accident Mother Hypothyroidism Grandparent Gallbladder cancer Social History Social History Smoking status: Never smoker Second hand tobacco smoke exposure: No Alcohol intake: current Drinks per week: 2 Substance use: never Do You Feel Safe in your Home?: Yes Lack of Transportation: No Lack of Food: Never True Current Housing: I Have Housing Concerned About Future Housing: No Difficulty Paying Gas/Electric Bills: No Difficulty Paying for Meds: No Currently Unemployed: No Education: High School Diploma/GED Difficulty w/ Childcare or Family Care: No Living arrangements: with family Occupation/Education: occupation Additional occupation/education comments: 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 Informed Consent: The patient's anesthetic plan and its attendant risks and benefits were discussed with the patient/family/POA. Questions were solicited and answers provided to the satisfaction of the patient/family/POA.
[2024-03-29] VITALS (9 sets, daily range): BP systolic 116–133; BP diastolic 63–90; PULSE 53–65; RESP 12–18; TEMP 36.2–36.6; O2SAT 98–100
--- NOTE | ~2024-03-29 | XR_ITS ---
EXAMINATION: XR surgery orthopedic DATE: 03/29/2024 12:45 INDICATION: Right wrist ORIF TECHNIQUE: 3 fluoroscopic images of the right wrist were obtained during procedure performed by Dr. Carmela vallejo. Radiologist was not present for the imaging or procedure. The amount of fluoroscopy time used during this procedure was 10.3 minutes. COMPARISON: None. FINDINGS: Images demonstrate fixation of the previously noted intra-articular fracture of the distal right radi us with a volar T plate and screws. The alignment appears near-anatomic with no significant fracture gap or incongruity evident at the articular surface. The previously seen mildly distracted small ulna r styloid avulsion fracture is also reduced to essentially anatomic alignment. No new fractures ident ified. Joint spaces are normal. IMPRESSION: 1. Near-anatomic alignment post open reduction internal fixation of a comminuted intra-articular frac ture of the distal right radius. Reviewed, dictated and finalized at location A. IMPRESSION: 1. Near-anatomic alignment post open reduction internal fixation of a comminute d intra-articular fracture of the distal right radius.
--- NOTE | 2024-03-29 07:10 | WPDHPUPDATE1 ---
History and Physical Update Update Date/Time: 03/29/24 07:10 History and Physical has been reviewed, including an updated exam of the patient. There are NO changes in the patient's condition. Risks, benefits, and alternatives have been discussed and questions answered. Patient agrees to proceed with procedure.
[2024-03-29] MEDS: LACTATED RINGERS 1,000 ML 30 ML IV CONT ×2 (10:20→13:17)
[2024-03-29] MEDS: CELECOXIB 200 MG CAPSULE PO (10:20)
[2024-03-29] MEDS: ACETAMINOPHEN 500 MG TABLET 1000 MG PO (10:20)
[2024-03-29] MEDS: ceFAZolin 2 GM/D5W 50 ML 2 GM/50 ML BAG IVPB (10:57)
[2024-03-29] MEDS: BUPivacaine HCL 0.5% PF 30 ML VIAL 20 ML INFILTRATE (11:30)
--- NOTE | 2024-03-29 13:27 | P.OP_ITS ---
Procedure Note - Detailed Date of Procedure 03/29/24 Pre-op Diagnosis right distal radius fx Post-op Diagnosis Same Procedure Performed ORIF RIGHT DISTAL RADIUS FRACTURE Surgeon Pepe Smith MD Anesthesia General Description of Procedure THE RIGHT UPPER EXTREMITY WAS PREPPED AND DRAPED IN THE STERILE FASHION. A STANDARD HENRYS APPROACH WAS USED TO THE VOLAR WRIST. DISSECTION THROUGH THE SKIN AND SUBCUTANEOUS TISSUE WAS PREFORMED. THE FCR TENDON WAS IDENTIFIED. THE RADIAL ARTERY WAS IDENTIFIED AND RETRACTED. THE THE FLEXOR POLLICIS AND THE COMMON FLEXOR TENDONS WERE IDENTIFIED AND RETRACTED. THE PRONATOR QUADRATUS WAS IDENTIFIED AND INCISED EXPOSING THE FRACTURE. IT WAS HIGHLY COMMINUTED. A TRI AL REDUCTION WAS PREFORMED AND FIXED WITH A K WIRE. NEXT A BIOMET DISTAL RADIUS LOCKING PLATE WAS PLACED BRIDGING THE FRACTURE FRAGMENTS. SCREWS WERE PLACED DISTALLY AND PROXIMALLY. THE DISTAL SCREWS WERE IMAGED AND FOUND TO BE EXTRA ARTICULAR. C ARM IMAGES WERE PREFORMED AND HARDWARE AND FRACTURE FRAGMENTS WERE IN GOOD POSITION. THE TOURNIQUET WAS DEFLATED AND THE BLEEDERS WERE CAUTERIZED. THE FASCIA AND SUB CUTANEOUS LAYERS WERE APPROXIMATED WITH 3-0 VICRYL. THE SKIN WITH 3-0 QUIL. DERMABOND WAS APPLIED. STERILE DRESSING AND SPLINT WAS APPLIED. PATIENT WAS EXTUBATED. Estimated Blood Loss 20 Complications No immediate complications Condition Stable Disposition PACU
[2024-03-29] MEDS: fentaNYL CITRATE INJ (*CRX) 100 MCG/2 ML VIAL 25 MCG IV PUSH ×4 (13:33→13:51)
[2024-03-29] MEDS: KETOROLAC 15 MG/ML VIAL (*BKC) IV PUSH (13:33)
[2024-03-29] MEDS: oxyCODONE HCL (*CRX) 5 MG TAB IR PO (14:27)
== END 2024-03-29 15:24 | disposition home or self-care (01) ==
PROVIDERS: PCP Internal Medicine; Visit Provider Orthopaedic Surgery
PROC: (CPT 25575; principal; 2024-03-29 11:30)
DX: S52.571A Other intraarticular fracture of lower end of right radius, initial encounter for closed fracture (principal); D64.9 Anemia, unspecified; F32.A Depression, unspecified; E06.3 Autoimmune thyroiditis; E28.2 Polycystic ovarian syndrome; W01.0XXA Fall on same level from slipping, tripping and stumbling without subsequent striking against object, initial encounter; Y93.51 Activity, roller skating (inline) and skateboarding; E66.9 Obesity, unspecified; Z68.35 Body mass index [BMI] 35.0-35.9, adult; Z79.891 Long term (current) use of opiate analgesic; Z98.890 Other specified postprocedural states; Z90.49 Acquired absence of other specified parts of digestive tract; Z80.0 Family history of malignant neoplasm of digestive organs; Z82.49 Family history of ischemic heart disease and other diseases of the circulatory system
CPT/HCPCS: 25608; 99199; A9270; C1713; J0690; J1100; J1170; J1885; J2250; J2405; J2704; J3010; J7120

== ENCOUNTER 2024-07-19 13:15 | Outpatient (RCR) | payer BC, OTHER, SELFPAY ==
--- NOTE | 2024-04-23 15:53 | OTOPEVAL1 ---
Assessment and note entered by Rosalio Chapin, NEL/Concepcion, CHT Evaluation Information Assessment Status Evaluation Diagnosis (R) distal radius fracture s/p ORIF Onset ORIF 03/29/24 Subjective Information Patient is right handed. Reporting some residual soreness. Presents in a wrist immobilizer that she has been wearing at all times unless bathing. Assessment OT Clinical Summary Patient referred to OT with dx of right distal radius fracture s/p ORIF. She is a little over 3 weeks out from surgery. She presents with residual stiffness, edema, soreness, and weakness that limits return to functional use. Skilled OT indicated to maximize functional use of her right, dominant UE. Plan of Care Interventions Therapeutic Exercise,Manual Therapy,Therapeutic Activities,Hot Pack/Cold Pack,Paraffin OT Services Indicated Yes Treatment Frequency and 2x/week for 8 visits Duration These treatments will address the objective and functional deficits as defined above. The patient will be advanced safely and appropriately in order for the patient to progress towards his/her prior level of function. Additional exercises will be introduced and as well as a comprehensive home exercise program upon discharge, if needed, ?to ensure carryover of functional gains achieved in the clinic. This treatment plan has been reviewed and agreement upon by the patient.
--- NOTE | 2024-04-23 15:54 | OPREHPOC ---
Outpatient Therapy Plan of Care This is a Multidisciplinary Plan of Care that may contain components documented by all disciplines (PT, OT, and ST.) OT Problem 1 OT Problem #1 Knowledge Deficit OT Goal 1 Goal 1. Patient to be independent with HEP. Target Visit 8 OT Problem 2 OT Problem #2 Impaired Range of Motion OT Goal 1 Goal Patient to increase active ROM of the (R) UE: 1. elbow flexion to 135 2. elbow extension to 0 3. forearm pronation to 45 4. forearm supination to 45 5. wrist flexion to 50 6. wrist extension to 30 7. finger flexion to be able to touch her finger tips to her palm Target Visit 8 OT Problem 3 OT Problem #3 Impaired Strength OT Goal 1 Goal 1. Patient to be able to complete right forearm and wrist strengthening with 1 lb. free weight x10 reps. 2. Patient to be able to complete right kaitara taraka/pinch strengthening with yellow theraputty x5 minutes. Target Visit 8
--- NOTE | 2024-05-16 15:18 | OTOPPROG ---
Assessment and note entered by Rosalio Chapin, NEL/Concepcion, ISHT OT Progress Update 05/16/24 Assessment Status Progress Diagnosis (R) distal radius fracture s/p ORIF Onset ORIF 03/29/24 Subjective Information Patient reports improvements in her flexibility. States she continues to experience pain and soreness on the back of the hand and wrist. She has progressed to taking the brace off to do dishes, otherwise she has been keeping it on. She is returning to work Monday. 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 Elbow flexion/extension returned to normal limits. 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 today. Assessment OT Clinical Summary Patient referred to OT with dx of right distal radius fracture s/p ORIF. She is 6 weeks out from surgery. She continues to present with moderate stiffness. Reviewed HEP. Perhaps she is not doing the passive stretching as aggressively as she could, provided feedback on these exercises. Practiced lifting today, she was able to lift a box with bilateral UEs with 15 lbs. Continued skilled OT indicated to maximize functional use of her right, dominant UE. Plan of Care Interventions Therapeutic Exercise,Manual Therapy,Therapeutic Activities,Hot Pack/Cold Pack,Paraffin OT Services Indicated Yes Treatment Frequency and 2x/week for 8 visits Duration These treatments will address the objective and functional deficits as defined above. The patient will be advanced safely and appropriately in order for the patient to progress towards his/her prior level of function. Additional exercises will be introduced and as well as a comprehensive home exercise program upon discharge, if needed, ?to ensure carryover of functional gains achieved in the clinic. This treatment plan has been reviewed and agreement upon by the patient.
--- NOTE | 2024-05-16 15:18 | OPREHPOC ---
Outpatient Therapy Plan of Care This is a Multidisciplinary Plan of Care that may contain components documented by all disciplines (PT, OT, and ST.) OT Problem 1 OT Problem #1 Knowledge Deficit OT Goal 1 Goal 1. Patient to be independent with HEP. ---OT POC UPDATE 05/16/24--- 1. Met Target Visit 16 OT Problem 2 OT Problem #2 Impaired Range of Motion OT Goal 1 Goal Patient to increase active ROM of the (R) UE: 1. elbow flexion to 135 2. elbow extension to 0 3. forearm pronation to 45 4. forearm supination to 45 5. wrist flexion to 50 6. wrist extension to 30 7. finger flexion to be able to touch her finger tips to her palm ---OT POC UPDATE 05/16/24--- 1. met 2. met 3. progressing, continue 4. progressing, continue 5. progressing, continue 6. no change, continue to focus on wrist extension 7. progressing, continue Target Visit 16 OT Problem 3 OT Problem #3 Impaired Strength OT Goal 1 Goal 1. Patient to be able to complete right forearm and wrist strengthening with 1 lb. free weight x10 reps. 2. Patient to be able to complete right operational test mechanic/pinch strengthening with yellow theraputty x5 minutes. ---OT POC UPDATE 05/16/24--- 1. Not met, continue strengthening 2. Not met, continue strengthening Target Visit 16
--- NOTE | 2024-06-13 15:03 | OTOPPROG ---
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 She has progressed out of her brace. She is carrying a gallon jug with the right hand now. Functional limitations include experiencing difficulties lifting heavier items off a shelf and placing on a countertop, which she does at work. She has returned to driving. Elbow flexion/extension returned to normal limits. Supination improved from 40 to 50 degrees. Pronation improved from 25 to 50 degrees. Wrist flexion improved from 30 to 40 degrees. Wrist extension improved from 0 to 20 degrees. 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 This improved from 5 lbs. Assessment OT Clinical Summary Patient referred to OT with dx of right distal radius fracture s/p ORIF. She has made progress with functional flexibility and strength which has carried over into improved functional use of her right UE for work tasks and ADLs. She continues to demonstrate deficits with flexibility in the forearm, wrist, and hand. Perhaps she is not doing the passive stretching as aggressively as she could, provided feedback on these exercises. Continued skilled OT indicated to maximize functional use of her right, dominant UE. Plan of Care Interventions Therapeutic Exercise,Manual Therapy,Therapeutic Activities,Hot Pack/Cold Pack,Paraffin OT Services Indicated Yes Treatment Frequency and 2x/week for 8 visits Duration These treatments will address the objective and functional deficits as defined above. The patient will be advanced safely and appropriately in order for the patient to progress towards his/her prior level of function. Additional exercises will be introduced and as well as a comprehensive home exercise program upon discharge, if needed, ?to ensure carryover of functional gains achieved in the clinic. This treatment plan has been reviewed and agreement upon by the patient.
--- NOTE | 2024-06-13 15:03 | OPREHPOC ---
Outpatient Therapy Plan of Care This is a Multidisciplinary Plan of Care that may contain components documented by all disciplines (PT, OT, and ST.) OT Problem 1 OT Problem #1 Knowledge Deficit OT Goal 1 Goal / Goal Update 1. Patient to be independent with HEP. ---OT POC UPDATE 05/16/24--- 1. Met ---OT POC UPDATE 06/13/24--- 1. Met, continue as HEP is progressed Target Visit 24 OT Problem 2 OT Problem #2 Impaired Range of Motion OT Goal 1 Goal / Goal Update Patient to increase active ROM of the (R) UE: 1. elbow flexion to 135 2. elbow extension to 0 3. forearm pronation to 45 4. forearm supination to 45 5. wrist flexion to 50 6. wrist extension to 30 7. finger flexion to be able to touch her finger tips to her palm ---OT POC UPDATE 05/16/24--- 1. met 2. met 3. progressing, continue 4. progressing, continue 5. progressing, continue 6. no change, continue to focus on wrist extension 7. progressing, continue ---OT POC UPDATE 06/13/24--- 1. met 2. met 3. met, UPGRADE to 70 degrees 4. met, UPGRADE to 70 degrees 5. progressing, continue wrist ROM 6. progressing, continue wrist ROM 7. met, UPGRADE to finger tips to touch DPC with < 1 cm gap Target Visit 24 OT Problem 3 OT Problem #3 Impaired Strength OT Goal 1 Goal / Goal Update 1. Patient to be able to complete right forearm and wrist strengthening with 1 lb. free weight x10 reps. 2. Patient to be able to complete right communications director/pinch strengthening with yellow theraputty x5 minutes. ---OT POC UPDATE 05/16/24--- 1. Not met, continue strengthening 2. Not met, continue strengthening ---OT P
--- NOTE | 2024-07-11 15:17 | OTOPPROG ---
Assessment and note entered by Rosalio Chapin, NEL/Concepcion, CHT Progress Update 07/11/24 Assessment Status Progress Diagnosis (R) distal radius fracture s/p ORIF Onset ORIF 03/29/24 Subjective Information Patient reports progress in the last month noting improvements with strength and flexibility. 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 She reports she is having difficulty opening jars and cans with the right hand. Reports no pain, just continues to have residual weakness and stiffness. Elbow flexion/extension returned to normal limits. Supination improved from 50 to 60 degrees. Pronation improved from 50 to 60 degrees. Wrist flexion improved from 40 to 55 degrees. Wrist extension improved from 20 to 40 degrees. 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 This improved from 13 lbs. Assessment OT Clinical Summary Patient referred to OT with dx of right distal radius fracture s/p ORIF. She has made progress with functional flexibility and strength which has carried over into improved functional use of her right UE for work tasks and ADLs. She continues to demonstrate deficits with flexibility in the forearm, wrist, and hand. She has done well with being more aggressive on the ROM HEP, which has shown in her progress. Continued skilled OT indicated to maximize functional use of her right, dominant UE. Plan of Care Interventions Therapeutic Exercise,Manual Therapy,Therapeutic Activities,Hot Pack/Cold Pack,Paraffin OT Services Indicated Yes Treatment Frequency and 2x/week for 8 visits Duration These treatments will address the objective and functional deficits as defined above. The patient will be advanced safely and appropriately in order for the patient to progress towards his/her prior level of function. Additional exercises will be introduced and as well as a comprehensive home exercise program upon discharge, if needed, ?to ensure carryover of functional gains achieved in the clinic. This treatment plan has been reviewed and agreement upon by the patient.
--- NOTE | 2024-07-11 15:18 | OPREHPOC ---
Outpatient Therapy Plan of Care This is a Multidisciplinary Plan of Care that may contain components documented by all disciplines (PT, OT, and ST.) OT Problem 1 OT Problem #1 Knowledge Deficit OT Goal 1 Goal / Goal Update 1. Patient to be independent with HEP. ---OT POC UPDATE 05/16/24--- 1. Met ---OT POC UPDATE 06/13/24--- 1. Met, continue as HEP is progressed ---OT POC UPDATE 07/11/24--- 1. Met, continue as HEP is progressed Target Visit 32 OT Problem 2 OT Problem #2 Impaired Range of Motion OT Goal 1 Goal / Goal Update Patient to increase active ROM of the (R) UE: 1. elbow flexion to 135 2. elbow extension to 0 3. forearm pronation to 45 4. forearm supination to 45 5. wrist flexion to 50 6. wrist extension to 30 7. finger flexion to be able to touch her finger tips to her palm ---OT POC UPDATE 05/16/24--- 1. met 2. met 3. progressing, continue 4. progressing, continue 5. progressing, continue 6. no change, continue to focus on wrist extension 7. progressing, continue ---OT POC UPDATE 06/13/24--- 1. met 2. met 3. met, UPGRADE to 70 degrees 4. met, UPGRADE to 70 degrees 5. progressing, continue wrist ROM 6. progressing, continue wrist ROM 7. met, UPGRADE to finger tips to touch DPC with < 1 cm gap ---OT POC UPDATE 07/11/24--- 1. met 2. met 3. progressing, continue to 70 deg. 4. progressing, continue to 70 deg. 5. met 6. met - Upgrade wrist extension goal to 50 deg. 7. progressing, continue hook fist goal Target Visit 32
--- NOTE | 2024-07-22 09:53 | PCOTNOTE ---
This treatment is being continued on visit number [id number]. Please see documentation on both accounts to view progress. Completed interventions, outcomes, and problems have been marked as Inactive to facilitate the copying of the Care plan routine for recurring accounts.
== END 2024-07-22 08:39 | disposition still patient (30) ==
LOC: ANHGOSHOT 13:15
PROVIDERS: PCP Internal Medicine; Visit Provider Orthopaedic Surgery
DX: S52.501D Unspecified fracture of the lower end of right radius, subsequent encounter for closed fracture with routine healing (principal); Z98.890 Other specified postprocedural states; Z87.81 Personal history of (healed) traumatic fracture
CPT/HCPCS: 97018; 97110; 97140; 97165; 97530

== ENCOUNTER 2024-09-10 13:15 | Outpatient (RCR) | payer OTHER, SELFPAY ==
--- NOTE | 2024-07-22 09:55 | PCOTNOTE ---
The treatment documented on this account is a continuation of the treatment documented on visit number [id number]. Please see documentation on both accounts to view progress. The Plan of Care has been transitioned and updated within the new V#. I have addressed and agree with the discipline specific Problems, Interventions, and Goals for the current certification period. Completed interventions, outcomes, and problems have been marked as Inactive to facilitate the copying of the Care plan routine for recurring accounts.
--- NOTE | 2024-08-08 15:18 | OTOPPROG ---
Assessment and note entered by Rosalio Chapin, NEL/Concepcion, CHT OT Progress Update 08/08/24 Diagnosis (R) distal radius fracture s/p ORIF Onset ORIF 03/29/24 Subjective Information Patient reports progress in the last month noting improvements with strength and flexibility. 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 She played tennis this week, holding the racket in her right hand and reports this felt ok , no pain, just weak. She reports she doesn't feel 100%, noting some residual stiffness and weakness. Elbow flexion/extension returned to normal limits. Supination 60 degrees, unchanged from last month. Pronation 65 degrees, 5 degrees improved from last month. Wrist flexion improved from 55 to 60 degrees. Wrist extension improved from 40 to 50 degrees. 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 This improved from 20 lbs. Assessment OT Clinical Summary Patient referred to OT with dx of right distal radius fracture s/p ORIF. She has made progress with functional flexibility and strength which continues to carry over into improved functional use of her right UE for work tasks and ADLs. She continues to demonstrate deficits with flexibility in the forearm and hand. Gross strength deficits noted as well. She has done well with being more aggressive with her HEP, which has shown in her progress. Continued skilled OT indicated to maximize functional use of her right, dominant UE. Plan of Care Interventions Therapeutic Exercise,Paraffin,Manual Therapy, Therapeutic Activities,Hot Pack/Cold Pack OT Services Indicated Yes Treatment Frequency and 1x/week for 4 visits Duration These treatments will address the objective and functional deficits as defined above. The patient will be advanced safely and appropriately in order for the patient to progress towards his/her prior level of function. Additional exercises will be introduced and as well as a comprehensive home exercise program upon discharge, if needed, ?to ensure carryover of functional gains achieved in the clinic. This treatment plan has been reviewed and agreement upon by the patient.
--- NOTE | 2024-08-08 15:18 | OPREHPOC ---
Outpatient Therapy Plan of Care This is a Multidisciplinary Plan of Care that may contain components documented by all disciplines (PT, OT, and ST.) OT Problem 1 OT Problem #1 Knowledge Deficit OT Goal 1 Goal / Goal Update 1. Patient to be independent with HEP. ---OT POC UPDATE 05/16/24--- 1. Met ---OT POC UPDATE 06/13/24--- 1. Met, continue as HEP is progressed ---OT POC UPDATE 07/11/24--- 1. Met, continue as HEP is progressed ---OT POC UPDATE 08/08/24--- 1. Met, continue as HEP is progressed Target Visit 36 OT Problem 2 OT Problem #2 Impaired Range of Motion OT Goal 1 Goal / Goal Update Patient to increase active ROM of the (R) UE: 1. elbow flexion to 135 2. elbow extension to 0 3. forearm pronation to 45 4. forearm supination to 45 5. wrist flexion to 50 6. wrist extension to 30 7. finger flexion to be able to touch her finger tips to her palm ---OT POC UPDATE 05/16/24--- 1. met 2. met 3. progressing, continue 4. progressing, continue 5. progressing, continue 6. no change, continue to focus on wrist extension 7. progressing, continue ---OT POC UPDATE 06/13/24--- 1. met 2. met 3. met, UPGRADE to 70 degrees 4. met, UPGRADE to 70 degrees 5. progressing, continue wrist ROM 6. progressing, continue wrist ROM 7. met, UPGRADE to finger tips to touch DPC with < 1 cm gap ---OT POC UPDATE 07/11/24--- 1. met 2. met 3. progressing, continue to 70 deg. 4. progressing, continue to 70 deg. 5. met 6. met - Upgrade wrist extension goal to 50 deg. 7. progressing, continue hook fist goal ---OT POC UPDATE 08/08/24--- 1. met 2. met 3. not met, reviewed HEP for this 4. progressing, continue 5. met 6. met 7. not met, reviewed HEP for this Target Visit 36 OT Problem 3 OT Problem #3 Impaired Strength OT Goal 1 Goal / Goal Update 1. Patient to be able to complete right forearm and wrist strengthening with 1 lb. free weight x10 reps. 2. Patient to be able to complete right vice president of recruiting/pinch strengthening with yellow theraputty x5 minutes. ---OT POC UPDATE 05/16/24--- 1. Not met, continue strengthening 2. Not met, continue strengthening ---OT POC UPDATE 06/13/24--- 1. Not met, continue strengthening 2. Met, UPGRADE right vice president of recruiting strength from 13 to 20 lbs. ---OT POC UPDATE 07/11/24--- 1. Met, upgrade to being able to complete forearm rotation on the BTE with 4 lbs. resistance x2 minutes without a rest 2. Met, upgrade to 30 lbs. ---OT POC UPDATE 08/08/24--- 1. met 2. progressing, continue Target Visit 36
--- NOTE | 2024-09-10 14:07 | OTOPDC ---
Assessment and note entered by Rosalio Chapin, OTR/L, CHT OT D/C Summary 09/10/24 Assessment Status Discharge Diagnosis (R) distal radius fracture s/p ORIF Onset ORIF 03/29/24 Subjective Information Patient reports progress in the last month noting improvements with strength and flexibility. Functionally she reports no functional limitations . She reports everything in general is getting easier. She reports she is having an easier time turning her palm up to receive change. 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 Elbow flexion/extension returned to normal limits. Supination 60 degrees, unchanged from last month. Pronation 65 degrees, unchanged from last month. Wrist flexion remained WFL at 60 degrees. Wrist extension remained WFL at 50 degrees. 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 Reported Pain Level Pain Score 0: Self Report Additional Pain Score Comments No reports of pain. Assessment OT Clinical Summary Patient referred to OT with dx of right distal radius fracture s/p ORIF. At this time she has reached a plateau with active ROM of the right forearm and wrist. Passive ROM of the forearm and wrist measures 5-10 degrees of available range past her active measurements. Gross strength is improving, she has progressed to 5 lbs. free weight for strengthening. Reviewed HEP today and she demonstrates excellent understanding of all materials. No further skilled OT indicated at this time. D/C OT. Plan of Care OT Services Indicated No
== END 2024-09-10 14:22 | disposition home or self-care (01) ==
LOC: ANHGOSHOT 13:15
PROVIDERS: PCP Internal Medicine; Visit Provider Orthopaedic Surgery
DX: S52.501D Unspecified fracture of the lower end of right radius, subsequent encounter for closed fracture with routine healing (principal); Z98.890 Other specified postprocedural states; Z87.81 Personal history of (healed) traumatic fracture
CPT/HCPCS: 97110; 97530

== ENCOUNTER 2025-06-17 12:45 | Outpatient (RCR) | payer OTHER, SELFPAY ==
[2025-06-17 13:19] VITALS: BMI 35.5
== END 2025-09-08 10:50 | disposition home or self-care (01) ==
LOC: ANHDMC 12:45
PROVIDERS: PCP Internal Medicine; Visit Provider Internal Medicine Endocrinology, Diabetes & Metabolism
DX: E66.9 Obesity, unspecified (principal); Z71.3 Dietary counseling and surveillance
CPT/HCPCS: 97802